=== PATIENT | female | born 1955 | race Caucasian/White ===

== ENCOUNTER 2020-05-12 15:10 | Emergency (ER) | payer OTHER ==
[2020-05-12] MEDS ORDERED: NA CHLORIDE 0.9% 500 ML ONE (15:59)
[2020-05-12] MEDS ORDERED: HYDROMORPHONE HCL 1 MG/ML INJ ONE ×2 (15:59→17:21)
--- NOTE | 2020-05-12 17:03 | RAD REPORT ---
EXAM DESCRIPTION: RAD - Pelvis - 05/12/2020 4:48 pm CLINICAL HISTORY: Pelvic pain status post injury FINDINGS: No fracture or dislocation is seen. If the patient continues to have symptoms to suggest an occult fracture then MRI would be recommended
--- NOTE | 2020-05-12 17:05 | RAD REPORT ---
EXAM DESCRIPTION: RAD - Femur Right - 05/12/2020 4:48 pm CLINICAL HISTORY: Leg pain FINDINGS: No fracture is seen involving the femur
--- NOTE | 2020-05-12 17:07 | RAD REPORT ---
EXAM DESCRIPTION: RAD - Tib Fib Right - 05/12/2020 4:47 pm CLINICAL HISTORY: Right leg pain FINDINGS: Comminuted impacted fracture involves the lateral tibial plateau which extends medially. M arked displacement of fracture fragments. No gross dislocation
--- NOTE | 2020-05-12 17:08 | RAD REPORT ---
EXAM DESCRIPTION: Miguel Single View05/12/2020 4:47 pm CLINICAL HISTORY: Chest pain COMPARISON: none FINDINGS: The lungs appear clear of acute infiltrate. The heart is normal size IMPRESSION: No acute abnormalities displayed
[2020-05-12] MEDS ORDERED: ONDANSETRON 4 MG/2 ML VIAL ONE (17:21)
--- NOTE | 2020-05-12 17:29 | EDPHYS ---
Physician Documentation [facility] Name: Cee Guthrie Age: 64 yrs Sex: Female : 1955 Arrival Date: 05/12/2020 Time: 15:20 Bed 19 Private MD: ED Physician Yared Valverde HPI: 05/12 15:30 This 64 yrs old Unknown Female presents to ER via EMS with complaints of Right Lower cp Leg Injury. 15:30 Trauma demographics: County: The injury occurred in [place] Location of Injury: The cp injury occurred at home, Date: May 12, 2020. Mechanism of injury: Fall: approximately approximately 2 feet. Associated injuries: The patient sustained right lower leg. Onset: The symptoms/episode began/occurred just prior to arrival. Patient reports fall from shed approximately 2 feet. Historical: - Allergies: 15:28 No Known Allergies; ca1 - Home Meds: 15:28 carvedilol oral oral [Active]; losartan oral oral [Active]; ca1 - PMHx: 15:28 Hypertension; ca1 - PSHx: 15:28 None; ca1 - Immunization history:: Adult Immunizations up to date, Last tetanus immunization: up to date Pneumococcal vaccine is up to date. - Social history:: Smoking status: Patient reports the use of cigarette tobacco products, smokes one-half pack cigarettes per day. ROS: 15:35 MS/extremity: Positive for injury or acute deformity, decreased range of motion, cp swelling, tenderness, of the proximal right lower leg. 15:35 Constitutional: Negative for body aches, chills, fever, poor PO intake. cp 15:35 All other systems are negative. Exam: 15:40 Constitutional: The patient appears in no acute distress, alert, awake, non-toxic, well cp developed, well nourished, in obvious pain, uncomfortable. 15:40 Head/Face: Normocephalic, atraumatic. cp 15:40 Eyes: Periorbital structures: appear normal, Conjunctiva: normal, no exudate, no injection, Lids and lashes: appear normal, bilaterally. 15:40 ENT: External ear(s): are unremarkable, Nose: is normal, Posterior pharynx: Airway: no evidence of obstruction, patent. 15:40 Neck: ROM/movement: is normal, is supple, without pain, no range of motions limitations. 15:40 Chest/axilla: Inspection: normal. 15:40 Cardiovascular: Rate: normal, Rhythm: regular. 15:40 Respiratory: the patient does not display signs of respiratory distress, Respirations: normal, no use of accessory muscles, no retractions, labored breathing, is not present, Breath sounds: are clear throughout, no decreased breath sounds. 15:40 Abdomen/GI: Inspection: abdomen appears normal, Palpation: abdomen is soft and non-tender, in all quadrants. 15:40 Back: pain, is absent, ROM is normal. 15:40 Musculoskeletal/extremity: Extremities: grossly normal except: noted in the proximal right lower leg: decreased ROM, deformity, ecchymosis, pain, swelling, tenderness, Perfusion: the extremity is normally perfused throughout, Sensation intact. 15:40 Neuro: Orientation: to person, place \T\ time. Mentation: is normal. Vital Signs: 15:24 BP 150 / 68; Pulse 88; Resp 16 S; Temp 97.9(O); Pulse Ox 98% on R/A; Weight 83.46 kg ca1 (R); Height 5 ft. 5 in. (165.10 cm) (R); Pain 10/10; 16:30 BP 123 / 74; Pulse 80; Resp 16 S; Pulse Ox 99% on R/A; ca1 17:30 BP 123 / 68; Pulse 84; Resp 16 S; Pulse Ox 98% on R/A; ca1 15:24 Body Mass Index 30.62 (83.46 kg, 165.10 cm) ca1 MDM: 15:27 Patient medically screened. cp 17:30 Data reviewed: vital signs, nurses notes, radiologic studies, plain films, and as a cp result, I will transfer patient. 05/12 15:27 Order name: XRAY Pelvis; Complete Time: 17:23 cp 05/12 17:23 Interpretation: Report reviewed. 05/12 15:27 Order name: XRAY Femur RIGHT; Complete Time: 17:23 cp 05/12 17:23 Interpretation: Report reviewed. 05/12 15:27 Order name: XRAY Tib Fib RIGHT; Complete Time: 17:23 cp 05/12 17:25 Interpretation: Report reviewed. cp 05/12 16:14 Order name: XRAY Chest (1 view); Complete Time: 17:23 cp 05/12 16:54 Order name: Knee Immobilizer; Complete Time: 17:12 cp Administered Medications: 15:45 Drug: NS 0.9% 500 ml Route: IV; Rate: bolus; Site: right antecubital; ca1 17:00 Follow up: Response: No adverse reaction; IV Status: Completed infusion; IV Intake: ca1 500ml 15:46 Drug: Dilaudid 1 mg Route: IVP; Site: right antecubital; ca1 16:30 Follow up: Response: No adverse reaction; Pain is decreased; RASS: Alert and Calm (0) ca1 16:30 Follow up: Response: No adverse reaction; Pain is decreased; RASS: Alert and Calm (0) ca1 17:09 Drug: Zofran (Ondansetron) 4 mg Route: IVP; Site: right antecubital; ca1 17:30 Follow up: Response: No adverse reaction; Nausea is decreased ca1 17:11 Drug: Dilaudid 1 mg {Note: rass 0.} Route: IVP; Site: right antecubital; ca1 18:00 Follow up: Response: No adverse reaction; Pain is decreased; RASS: Alert and Calm (0) ca1 18:03 Drug: Phenergan 12.5 mg Route: IVP; Site: right antecubital; ca1 18:11 Follow up: Response: No adverse reaction; Nausea is decreased ca1 Disposition: 17:45 Chart complete. 05/13 18:01 Co-signature as Attending Physician, Yared Valverde MD I agree with the assessment and [facility] plan of care. Disposition: 05/12/20 17:29 Transfer ordered to [facility]. Diagnosis is Fracture of upper end of tibia - right. - Reason for transfer: Higher level of care. - Accepting physician is DR Farfan. - Condition is Stable. - Problem is new. - Symptoms have improved. Signatures: Dispatcher [employer] Yared Henson MD MD cha Page, Corey, PA PA cp Acob, Cheryl RN RN ca1 Corrections: (The following items were deleted from the chart) 05/12 17:32 17:29 05/12/2020 17:29 Transfer ordered to [facility]. Diagnosis is cp Fracture of upper end of tibia - right. Reason for transfer: Higher level of care. Accepting physician is Doctor. Condition is Stable. Problem is new. Symptoms have improved. cp 18:18 17:32 05/12/2020 17:29 Transfer ordered to [facility]. Diagnosis is ca1 Fracture of upper end of tibia - right. Reason for transfer: Higher level of care. Accepting physician is DR Farfan. Condition is Stable. Problem is new. Symptoms have improved. cp
--- NOTE | 2020-05-12 17:29 | ER ---
Nurse's Notes [facility] Name: Cee Guthrie Age: 64 yrs Sex: Female : 1955 Arrival Date: 05/12/2020 Time: 15:20 Bed 19 Private MD: Diagnosis: Fracture of upper end of tibia-right Presentation: 05/12 15:24 Chief complaint: Chief complaint: Patient's son or daughter states: Missed a step, ca1 tripped and fell 2.5 feet down, landed on R knee with obvious deformity. Denies LOC. Denies hitting head. Hip stable, denies pain. IV 20G RAC, Zofran 4mg IV, Tylenol 1gm IV, Fentanyl 100 mcg IV given. Coronavirus screen: Client denies travel out of the [place] in the last 14 days. At this time, the client does not indicate any symptoms associated with coronavirus-19. Ebola Screen: Patient negative for fever greater than or equal to 101.5 degrees Fahrenheit, and additional compatible Ebola Virus Disease symptoms Patient denies exposure to infectious person. Patient denies travel to an Ebola-affected area in the 21 days before illness onset. No symptoms or risks identified at this time. Initial Sepsis Screen: Does the patient meet any 2 criteria? No. Patient's initial sepsis screen is negative. Does the patient have a suspected source of infection? No. Patient's initial sepsis screen is negative. Risk Assessment: Do you want to hurt yourself or someone else? Patient reports no desire to harm self or others. Onset of symptoms was May 12, 2020. 15:24 Method Of Arrival: EMS: [facility] ca1 15:24 Acuity: RADHA 3 ca1 Triage Assessment: 15:28 General: Appears in no apparent distress. uncomfortable, Behavior is calm, cooperative, ca1 appropriate for age. Pain: Complains of pain in right knee Pain does not radiate. Pain currently is 10 out of 10 on a pain scale. EENT: No signs and/or symptoms were reported regarding the EENT system. Neuro: Level of Consciousness is awake, alert, obeys commands, Oriented to person, place, time, situation. Derm: Skin is intact, is healthy with good turgor, Skin is pink, warm \T\ dry. Musculoskeletal: Circulation, motion, and sensation intact. Capillary refill < 3 seconds, Range of motion: limited in right knee Bony deformity noted of right knee. Historical: - Allergies: 15:28 No Known Allergies; ca1 - Home Meds: 15:28 carvedilol oral oral [Active]; losartan oral oral [Active]; ca1 - PMHx: 15:28 Hypertension; ca1 - PSHx: 15:28 None; ca1 - Immunization history:: Adult Immunizations up to date, Last tetanus immunization: up to date Pneumococcal vaccine is up to date. - Social history:: Smoking status: Patient reports the use of cigarette tobacco products, smokes one-half pack cigarettes per day. Screenin:29 Abuse screen: Denies threats or abuse. Denies injuries from another. Nutritional ca1 screening: No deficits noted. Tuberculosis screening: No symptoms or risk factors identified. Fall Risk Fall in past 12 months (25 points). IV access (20 points). Total Lewis Fall Scale indicates Low Risk Score (25-44 pts). Fall prevention measures have been instituted. Side Rails Up X 2 As available Patient and Family Educated on Fall Prevention Program and strategies. Assessment: 15:29 Reassessment: see triage notes. ca1 16:30 Reassessment: Patient appears in no apparent distress at this time. Patient and/or ca1 family updated on plan of care and expected duration. Pain level reassessed. Patient is alert, oriented x 3, equal unlabored respirations, skin warm/dry/pink. 17:30 Reassessment: Patient appears in no apparent distress at this time. Patient and/or ca1 family updated on plan of care and expected duration. Pain level reassessed. Patient is alert, oriented x 3, equal unlabored respirations, skin warm/dry/pink. 18:03 Reassessment: Called report to ALONZO Loving. ca1 18:17 Reassessment: Patient appears in no apparent distress at this time. Patient is alert, ca1 oriented x 3, equal unlabored respirations, skin warm/dry/pink. Vital Signs: 15:24 BP 150 / 68; Pulse 88; Resp 16 S; Temp 97.9(O); Pulse Ox 98% on R/A; Weight 83.46 kg ca1 (R); Height 5 ft. 5 in. (165.10 cm) (R); Pain 10/10; 16:30 BP 123 / 74; Pulse 80; Resp 16 S; Pulse Ox 99% on R/A; ca1 17:30 BP 123 / 68; Pulse 84; Resp 16 S; Pulse Ox 98% on R/A; ca1 15:24 Body Mass Index 30.62 (83.46 kg, 165.10 cm) ca1 ED Course: 15:20 Patient arrived in ED. ca1 15:23 Pankaj Mcmahon NP is PHCP. pm1 15:23 Yared Valverde MD is Attending Physician. pm1 15:23 Yared Morillo PA is PHCP. cp 15:25 Triage completed. ca1 15:28 Arm band placed on right wrist. ca1 15:29 Patient has correct armband on for positive identification. Bed in low position. Call ca1 light in reach. Side rails up X2. Pulse ox on. NIBP on. Warm blanket given. 15:29 Maintain EMS IV. Dressing intact. Good blood return noted. Site clean \T\ dry. Gauge \T\ ca 1 site: 20G RAC. 15:32 Nurys Jaime, RN is Primary Nurse. ca1 16:47 XRAY Pelvis In Process Unspecified. EDMS 16:47 XRAY Femur RIGHT In Process Unspecified. EDMS 16:47 XRAY Tib Fib RIGHT In Process Unspecified. EDMS 16:47 XRAY Chest (1 view) In Process Unspecified. EDMS 17:17 Knee immobilizer applied on right knee. ca1 17:51 No provider procedures requiring assistance completed. Patient transferred, IV remains ca1 in place. Administered Medications: 15:45 Drug: NS 0.9% 500 ml Route: IV; Rate: bolus; Site: right antecubital; ca1 17:00 Follow up: Response: No adverse reaction; IV Status: Completed infusion; IV Intake: ca1 500ml 15:46 Drug: Dilaudid 1 mg Route: IVP; Site: right antecubital; ca1 16:30 Follow up: Response: No adverse reaction; Pain is decreased; RASS: Alert and Calm (0) ca1 16:30 Follow up: Response: No adverse reaction; Pain is decreased; RASS: Alert and Calm (0) ca1 17:09 Drug: Zofran (Ondansetron) 4 mg Route: IVP; Site: right antecubital; ca1 17:30 Follow up: Response: No adverse reaction; Nausea is decreased ca1 17:11 Drug: Dilaudid 1 mg {Note: rass 0.} Route: IVP; Site: right antecubital; ca1 18:00 Follow up: Response: No adverse reaction; Pain is decreased; RASS: Alert and Calm (0) ca1 18:03 Drug: Phenergan 12.5 mg Route: IVP; Site: right antecubital; ca1 18:11 Follow up: Response: No adverse reaction; Nausea is decreased ca1 Intake: 17:00 IV: 500ml; Total: 500ml. ca1 Outcome: 17:29 ER care complete, transfer ordered by . cp 18:17 Transferred by ground EMS to [facility], Transfer form completed. X-rays sent ca1 w/ patient. 18:17 Condition: stable 18:17 Instructed on the need for transfer. 18:18 Patient left the ED. ca1 Signatures: Dispatcher [employer] EDMS Yared Morillo PA PA cp Marinas, Patrick, [employer]AL MEAT P[employer]ER HALAL MEAT PACKER pm1 Nurys Jaime, RN RN ca1 Corrections: (The following items were deleted from the chart) 15:27 15:24 Chief complaint: ca1 ca1 20:22 20:22 Response: No adverse reaction; Nausea is decreased ca1 ca1
[2020-05-12] MEDS ORDERED: PROMETHAZINE INJ 25 MG/ML AMP ONE (18:14)
[2020-05-16 17:58] VITALS: TEMP 97.9
[2020-05-16 18:00] VITALS: BP 123/68; O2SAT 98
== END 2020-05-12 18:18 | disposition short-term general hospital (02) ==
LOC: ER 15:10
PROC: 2W3LX1Z Immobilization of Right Lower Extremity using Splint (ICD-10-PCS; principal; 2020-05-12)
DX: S82.141A Displaced bicondylar fracture of right tibia, initial encounter for closed fracture (principal); W13.8XXA Fall from, out of or through other building or structure, initial encounter; Y93.9 Activity, unspecified; Y92.009 Unspecified place in unspecified non-institutional (private) residence as the place of occurrence of the external cause; I10 Essential (primary) hypertension; F17.210 Nicotine dependence, cigarettes, uncomplicated
CPT/HCPCS: 96361; 71045; 72170; 73552; 73590; 96375; 96374; 99285; 29505; J2550; J1170 ×2; J7040; J2405

== ENCOUNTER 2020-05-25 17:10 | Emergency (ER) | payer OTHER ==
--- OUTSIDE RECORDS SUMMARY | 2020-05-25 17:13 | XMS REPORT | Summary of Care ---
:1955 Author Organization [facility] Address [address] [place] [id number] Care Team Providers Name Role Phone Waqar Zendejas MD Primary Care Provider Geovanna Miller MD Unavailable Shonda Flores Unavailable Encounter Details Date Type Department Care Team Description 03/02/2020 Imm/Inj Visit [facility] Family Blas Zendejas MD [address] [place] [address] [place] [address] Need for prophylactic Medicine - [place] Nurse, [facility] Fam Pob I vaccination and [address] [place] [address] [place] [address] Allergies Active Allergy Reactions Severity Noted Date Comments Lisinopril Cough 09/22/2019 documented as of this encounter (statuses as of 03/02/2020) Medications Medication Sig Dispensed Refills Start Date End Date Status losartan 25 mg Take 1 tablet by 90 tablet 3 09/22/2019 Active tabletIndications: mouth daily. Family history of premature CAD, Essential hypertension, Metabolic syndrome, Palpitations carvediloL (COREG) 6.25 Take 6.25 mg by 0 Active mg tablet mouth 2 (two) times daily with meals. documented as of this encounter (statuses as of 03/02/2020) Active Problems Problem Noted Date Pelviectasis, renal 11/22/2019 Fatty liver 11/22/2019 Erythrocytosis 11/11/2019 Abnormal liver function tests 11/11/2019 Dyslipidemia 11/11/2019 Vitamin D deficiency 11/11/2019 Osteopenia 03/04/2019 Essential hypertension 02/11/2019 Type 2 diabetes mellitus without complications 019 Tobacco use 02/11/2019 documented as of this encounter (statuses as of 03/02/2020) Immunizations Name Administration Dates Next Due Influenza High Dose 02/25/2019 Influenza Virus Vaccine Quad .5 mL IM 6+ MO 03/02/2020 Pneumococcal 13 Conjugate, PCV13 (Prevnar 13) 02/25/2019 documented as of this encounter Social History Tobacco Use Types Packs/Day Years Used Date Current Every Day Smoker Cigarettes 0.5 30 Smokeless Tobacco: Never Used Alcohol Use Drinks/Week oz/Week Comments Not Currently Alcohol Habits Answer Date Recorded How often do you have a drink containing alcohol? Never 02/11/2019 How many drinks containing alcohol do you have on a typical Not asked day when you are drinking? How often do you have six or more drinks on one occasion? No t asked Sex Assigned at Date Recorded Not on file documented as of this encounter Last Filed Vital Signs Not on filedocumented in this encounter Plan of Treatment Date Type Specialty Care Team Description 03/30/2020 Office Visit Cardiology Tequila Miller MD [address] [place] [phone] 05/11/2020 Office Visit Family Medicine Michela Zenedjas MD [address] [facility] [address] [place] [phone] Health Maintenance Due Date Last Done Comments COLON CANCER SCREENING ANNUAL 12/01/2003 FIT/FOBT COLON CANCER SCREENING FIT 12/01/2003 DNA EVERY 3 YEARS COLON CANCER SCREENING 12/01/2003 SIGMOIDOSCOPY EVERY 5 YEARS COLONOSCOPY 12/01/2003 Colorectal Cancer Screening 12/01/2003 INFLUENZA VACCINE (#1) 2020 02/25/2019 Medicare Wellness Visit 02/26/2020 02/25/2019 PNEUMOCOCCAL VACCINES 65+ (2 02/26/2020 02/25/2019 of 2 - PPSV23) Breast Cancer Screening 03/04/2020 03/04/2019 (MAMMOGRAM) LUNG CANCER SCREEN: 03/04/2020 03/04/2019 Recommended for age 55-80 with 30 + pack year history EYE EXAM 05/11/2020 Postponed from 0 12/01/1963 (Current Contraindication ) HgA1C 05/11/2020 11/10/2019, 05/12/2019, 01/24/2019 DTaP,Tdap,and Td Vaccines (1 05/12/2020 Pos tponed from 1972 - Tdap) (Insurance / Fin ancial) Zoster Recombinant Vaccine 05/12/2020 Postp oned from 12/01/2003 (SHINGRIX) (1 of 2) (Insurance / Financial) CREATININE (SERUM) 11/09/2020 11/10/2019, 05/12/2019, 01/24/2019 Depression Screening 11/09/2020 11/10/2019 FOOT EXAM 11/09/2020 11/10/2019, 11/10/2019, 02/11/2019 LDL-C 11/09/2020 11/10/2019, 05/12/2019, 01/24/2019 URINE MICROALBUMIN 11/09/2020 11/10/2019, 02/25/2019 Osteoporosis Screening 03/04/2029 03/04/2019 HEPATITIS C (HCV) SCREEN Completed 02/25/2019 documented as of this encounter Procedures Procedure Name Priority Date/Time Associated Diagnosis Comme nts FLU VACC ([id number]), Routine 03/02/2020 1:43 PM Need for pro phylactic 6+ MONTHS, IM, QUAD CDT vaccination and inoculation against influenza documented in this encounter Results Not on filedocumented in this encounter Visit Diagnoses Diagnosis Need for prophylactic vaccination and in oculation against influenza documented in this encounter Insurance Payer Benefit Plan / Subscriber ID Effective Phone Address T ype Group Dates MEDICARE MEDICARE PART [id number] 2018-Prese [phone] Medicare A & B nt [id number] [place] [phone] [facility] [id number] 2018-Prese I ndemnity [employer] nt documented as of this encounter
--- OUTSIDE RECORDS SUMMARY | 2020-05-25 17:14 | XMS REPORT | Summary of Care ---
:1955 Author Organization [facility] Address [address] [place] [address] Care Team Providers Name Role Phone Waqar Zendejas MD Primary Care Provider Geovanna Miller MD Unavailable Shonda Flores Unavailable Reason for Referral Radiology Services (Routine) Status Reason Specialty Diagnoses / Referred By Referred To Procedures Contact Contact Closed Diagnostic Diagnoses Encounter for screening mammogram for malignant neoplasm of breast Waqar Zendejas Radiology Procedures BI SCREENING MAMMOGRAM BILATERAL MD Evita [address] [place] [address] [place] [address] Reason for Visit Radiology Services (Routine) Status Reason Specialty Diagnoses / Referred By Referred To Procedures Contact Contact Closed Diagnostic Diagnoses Encounter for screening mammogram for malignant neoplasm of breast Waqar Zendejas Radiology Procedures BI SCREENING MAMMOGRAM BILATERAL MD Evita [address] [place] [address] Encounter Details Date Type Department Care Team Description 03/28/2020 Hospital Encounter [facility] Andrey Zendejas Arrived [place] [facility] Sofía sewell MD [address] [place] [address] Dr devlin [address] [place] [address] [place] [address] [place] [address] [phone] [address] Allergies Active Allergy Reactions Severity Noted Date Comments Lisinopril Cough 09/22/2019 documented as of this encounter (statuses as of 03/29/2020) Medications Medication Sig Dispensed Refills Start Date End Date Status losartan 25 mg Take 1 tablet by 90 tablet 3 09/22/2019 Active tabletIndications: mouth daily. Family history of premature CAD, Essential hypertension, Metabolic syndrome, Palpitations carvediloL (COREG) 6.25 Take 6.25 mg by 0 Active mg tablet mouth 2 (two) times daily with meals. documented as of this encounter (statuses as of 03/29/2020) Active Problems Problem Noted Date Pelviectasis, renal 11/22/2019 Fatty liver 11/22/2019 Erythrocytosis 11/11/2019 Abnormal liver function tests 11/11/2019 Dyslipidemia 11/11/2019 Vitamin D deficiency 11/11/2019 Osteopenia 03/04/2019 Essential hypertension 02/11/2019 Type 2 diabetes mellitus without complications 019 Tobacco use 02/11/2019 documented as of this encounter (statuses as of 03/29/2020) Immunizations Name Administration Dates Next Due Influenza High Dose 02/25/2019 Influenza Virus Vaccine Quad .5 mL IM 6+ MO 03/02/2020 Pneumococcal 13 Conjugate, PCV13 (Prevnar 13) 02/25/2019 Pneumococcal Polysaccharide, PPSV23 (PNEUMOVAX) 03/02/2020 documented as of this encounter Social History [...] Assigned at Date Recorded Not on file COVID-19 Exposure Response Date Recorded In the last month, have you been in contact with No / Unsure 03/28/2020 9:08 AM CDT someone who was confirmed or suspected to have Coronavirus / COVID-19? documented as of this encounter Last Filed Vital Signs Not on filedocumented in this encounter Plan of Treatment Date Type Specialty Care Team Description 03/30/2020 Office Visit Cardiology Tequila Miller MD [address] [place] [address] [phone] 05/11/2020 Office Visit Family Medicine Michela Zendejas MD [address] [place] [address] [phone] Health Maintenance Due Date Last Done Comments COLON CANCER SCREENING ANNUAL 12/01/2003 FIT/FOBT COLON CANCER SCREENING FIT 12/01/2003 DNA EVERY 3 YEARS COLON CANCER SCREENING 12/01/2003 SIGMOIDOSCOPY EVERY 5 YEARS COLONOSCOPY 12/01/2003 Colorectal Cancer Screening 12/01/2003 Medicare Wellness Visit 02/26/2020 02/25/2019 Breast Cancer Screening 03/04/2020 03/04/2019 (MAMMOGRAM) LUNG [...] 03/04/2019 HEPATITIS C (HCV) SCREEN Completed 02/25/2019 INFLUENZA VACCINE Completed 03/02/2020, 02/25/2019 PNEUMOCOCCAL VACCINES 65+ Completed 03/02/2020, 02/25/2019 documented as of this encounter Procedures Procedure Name Priority Date/Time Associated Diagnosis Comme nts BI SCREENING Routine 03/28/2020 9:43 AM Encounter for Results for this MAMMOGRAM BILATERAL CDT screening mammogram p rocedure are in for malignant the results neoplasm of breast section. documented in this encounter Results BI SCREENING MAMMOGRAM BILATERAL (03/28/2020 9:43 AM CDT) Specimen Narrative Performed At This result has an attachment that is no t available. Examination: PACS BI SCREENING MAMMOGRAM BILATERAL History: Patient is 64 year old and is seen for: Screening ma mmogram. Computer-aided detection (CAD) utilized. Comparisons: 03/15/2019 BI DIAGNOSTIC TOMOSYNTHESIS LE FT and 03/04/2019 BI SCREENING MAMMOGRAM BILATERAL Findings: The breasts are almost entirely fatty. Left There is a 4 mm equal density, oval mass with circumsc ribed margins seen in the lower outer quadrant of the left breast in the middle depth, 6.6 cm from the nipple. Compared to the previous study, there are no significant changes. There is no evidence of suspicious masses, calcificati ons, or other abnormal findings in the left breast. Right There is no evidence of suspicious masses, calcificati ons, or other abnormal findings in the right breast. Impression: No signs of malignancy. Recommendation: Annual mammographic follow-up - Left Annual mammographic follow-up - Right BI-RADS Category: Both 2 - Benign Performing Organization Address City/State/Zipcode Phone Number PACS documented in this encounter Visit Diagnoses Diagnosis Encounter for screening mammogram for ma lignant neoplasm of breast Other screening mammogram documented in this encounter Insurance Payer Benefit Plan / Subscriber ID Effective Phone Address T ype Group Dates MEDICARE MEDICARE PART [id number] 2018-Prese [phone] Medicare A & B nt [phone] [id number] [place] [phone] [facility] [id number] 2018-Prese I ndemnity [employer] nt documented as of this encounter
--- OUTSIDE RECORDS SUMMARY | 2020-05-25 17:14 | XMS REPORT | Summary of Care ---
:1955 Author Organization [facility] Address [address] [place] [address] Care Team Providers Name Role Phone Waqar Zendejas MD Primary Care Provider Geovanna Miller MD Unavailable Shonda Flores Unavailable Reason for Referral Radiology Services (Routine) Status Reason Specialty Diagnoses / Referred By Referred To Procedures Contact Contact New Request Diagnostic Diagnoses Encounter for screening mammogram for malignant neoplasm of breast Cristiana, Radiology Procedures BI SCREENING MAMMOGRAM BILATERAL Waqar Jama MD [address] [place] [address] [place] [address] Reason for Visit Reason Comments Orders Annual mammogram Encounter Details Date Type Department Care Team Description 03/06/2020 Telephone [facility] Family Waqar Zendejas O rders (Annual Medicine - Christine GOTTI mammogram) [address] [place] [address] [place] [phone] Allergies Active Allergy Reactions Severity Noted Date Comments Lisinopril Cough 09/22/2019 documented as of this encounter (statuses as of 03/06/2020) Medications Medication Sig Dispensed Refills Start Date End Date Status losartan 25 mg Take 1 tablet by 90 tablet 3 09/22/2019 Active tabletIndications: mouth daily. Family history of premature CAD, Essential hypertension, Metabolic syndrome, Palpitations carvediloL (COREG) 6.25 Take 6.25 mg by 0 Active mg tablet mouth 2 (two) times daily with meals. documented as of this encounter (statuses as of 03/06/2020) Active Problems Problem Noted Date Pelviectasis, renal 11/22/2019 Fatty liver 11/22/2019 Erythrocytosis 11/11/2019 Abnormal liver function tests 11/11/2019 Dyslipidemia 11/11/2019 Vitamin D deficiency 11/11/2019 Osteopenia 03/04/2019 Essential hypertension 02/11/2019 Type 2 diabetes mellitus without complications 019 Tobacco use 02/11/2019 documented as of this encounter (statuses as of 03/06/2020) Immunizations Name Administration Dates Next Due Influenza [...] Signs Not on filedocumented in this encounter Miscellaneous Notes Telephone Encounter - Waqar Zendejas MD - 03/06/2020 6:10 PM CDTOrder entered. elephone Encounter - Lluvia Casas - 03/06/2020 3:53 PM CDTPlease review elephone Encounter - Jaqueline Mina - 03/06/2020 3:00 PM CDTRequesting orders for patient 12-month follow-up on her BILATERAL breast. Please place order for: SCREENING MAMMOGRAM-BILATERAL If patient is planning on returning to [facility] please place order for mammogram. Once orders are placed, we will call and schedule patient Thank you documented in this encounter Plan of Treatment Date Type Specialty Care Team Description 03/30/2020 Office Visit Cardiology Tequila Miller MD [address] [place], [place] [phone] 05/11/2020 Office Visit Family Medicine Michela Zendejas MD [address] [place] [phone] Name Type Priority Associated Diagnoses Order S chedule BI SCREENING MAMMOGRAM IMAGING Routine Encounter for scre ening Expected: 03/06/2020, BILATERAL mammogram for malignant Expi res: 05/06/2021 neoplasm of breast Health Maintenance Due Date Last Done Comments [...] 03/02/2020, 02/25/2019 documented as of this encounter Results Not on filedocumented in this encounter Visit Diagnoses Diagnosis Encounter for screening mammogram for ma lignant neoplasm of breast - Primary Other screening mammogram documented in this encounter Insurance Payer Benefit Plan / Subscriber ID Effective Phone Address T ype Group Dates MEDICARE MEDICARE PART [id number] 2018-Prese [phone] Medicare A & B nt [phone] [id number] [place] [phone] [facility] [id number] 2018-Prese I ndemnity [employer] nt documented as of this encounter
--- OUTSIDE RECORDS SUMMARY | 2020-05-25 17:14 | XMS REPORT | Summary of Care ---
:1955 Author Organization [facility] Address [address] [place] [address] Care Team Providers Name Role Phone Waqar Zendejas MD Primary Care Provider Geovanna Miller MD Unavailable Shonda Flores Unavailable Encounter Details Date Type Department Care Team Description 03/28/2020 Orders Only [facility] Doctor Unassigned, No [address] [facility] [place] [address] [address] [place] [address] Allergies Active Allergy Reactions Severity Noted Date Comments Lisinopril Cough 09/22/2019 documented as of this encounter (statuses as of 03/28/2020) Medications Medication Sig Dispensed Refills Start Date End Date Status losartan 25 mg Take 1 tablet by 90 tablet 3 09/22/2019 Active tabletIndications: mouth daily. Family history of premature CAD, Essential hypertension, Metabolic syndrome, Palpitations carvediloL (COREG) 6.25 Take 6.25 mg by 0 Active mg tablet mouth 2 (two) times daily with meals. documented as of this encounter (statuses as of 03/28/2020) Active Problems Problem Noted Date Pelviectasis, renal 11/22/2019 Fatty liver 11/22/2019 Erythrocytosis 11/11/2019 Abnormal liver function tests 11/11/2019 Dyslipidemia 11/11/2019 Vitamin D deficiency 11/11/2019 Osteopenia 03/04/2019 Essential hypertension 02/11/2019 Type 2 diabetes mellitus without complications 019 Tobacco use 02/11/2019 documented as of this encounter (statuses as of 03/28/2020) Immunizations Name Administration Dates Next Due Influenza [...] Treatment Date Type Specialty Care Team Description 03/28/2020 Appointment Radiology Michela Zendejas MD [address] [place] [phone] 03/30/2020 Office Visit Cardiology Tequila Miller MD [address] [place] [phone] 05/11/2020 Office Visit Family Medicine Michela Zendejas MD [address] [place] [address] [phone] Health Maintenance Due Date Last Done [...] Name Priority Date/Time Associated Diagnosis Comme nts ASSIGNMENT OF BENEFITS Routine 03/28/2020 9:01 AM CDT documented in this encounter Results Not on filedocumented in this encounter Insurance Payer Benefit Plan / Subscriber ID Effective Phone Address T ype Group Dates MEDICARE MEDICARE PART [id number] 2018-Prese [phone] Medicare A & B nt [id number] [place] [phone] [facility] [id number] 2018-Prese I ndemnity [employer] nt documented as of this encounter
--- OUTSIDE RECORDS SUMMARY | 2020-05-25 17:14 | XMS REPORT | Summary of Care ---
:1955 Author Organization [facility] [[email or web address]] [email or web address] Address [address] [place] [id number] Care Team Providers Name Role Phone Waqar Zendejas MD Primary Care Provider Geovanna Miller MD Unavailable Shonda Flores Unavailable Reason for Visit Reason Comments Follow-up 6mo Ekg Done today in Office Encounter Details Date Type Department Care Team Description 03/30/2020 Office Visit [facility] Tequila Miller Essential hyp ertension (Primary Dx); Cardiology- Christine Austin MD Family history of premature CAD; [address] [place] [address] [facility] Metabolic sean; [address], [address] Palpitations; [place], [place] Dyslipidemia; [id number] Dyslipidemia, goal LDL below 70 [phone] Allergies Active Allergy Reactions Severity Noted Date Comments Lisinopril Cough 09/22/2019 documented as of this encounter (statuses as of 03/30/2020) Medications Medication Sig Dispensed Refills Start Date End Date Status carvediloL (COREG) Take 1 180 tablet 3 03/30/2020 Active 6.25 mg tablet by 1 tabletIndications: mouth 2 Family history of (two) times premature CAD, daily with Essential meals for 90 hypertension, days. Metabolic syndrome, Palpitations losartan 25 mg Take 1 90 tablet 3 03/30/2020 Acti ve tabletIndications: tablet by Family history of mouth daily. premature CAD, Essential hypertension, Metabolic syndrome, Palpitations losartan 25 mg Take 1 90 tablet 3 09/22/2019 Disc ontinued tabletIndications: tablet by 0 ( Reorder) Family history of mouth daily. premature CAD, Essential hypertension, Metabolic syndrome, Palpitations carvediloL (COREG) Take 6.25 mg 0 03/30/20 2 Discontinued 6.25 mg tablet by mouth 2 0 (Reo rder) (two) times daily with meals. documented as of this encounter (statuses as of 03/30/2020) Active Problems Problem Noted Date Pelviectasis, renal 11/22/2019 Fatty liver 11/22/2019 Erythrocytosis 11/11/2019 Abnormal liver function tests 11/11/2019 Dyslipidemia 11/11/2019 Vitamin D deficiency 11/11/2019 Osteopenia 03/04/2019 Essential hypertension 02/11/2019 Type 2 diabetes mellitus without complications 019 Tobacco use 02/11/2019 documented as of this encounter (statuses as of 03/30/2020) Immunizations Name Administration Dates Next Due Influenza [...] been in contact with No / Unsure 03/30/2020 9:48 AM CDT someone who was confirmed or suspected to have Coronavirus / COVID-19? documented as of this encounter Last Filed Vital Signs Vital Sign Reading Time Taken Comments Blood Pressure 120/76 03/30/2020 10:46 AM CDT Pulse 77 03/30/2020 10:46 AM CDT Temperature - - Respiratory Rate 19 03/30/2020 10:46 AM CDT Oxygen Saturation 99% 03/30/2020 10:46 AM CDT Inhaled Oxygen Concentration - - Weight 83.9 kg (184 lb 14.4 oz) 03/30/2020 10:46 AM CDT Height 165.1 cm (5' 5") 03/30/2020 10:46 AM CDT Body Mass Index 30.77 03/30/2020 10:46 AM CDT documented in this encounter Progress Notes Tequila Miller MD - 03/30/2020 10:30 AM CDT [facility] Cardiology Consult Note Patient: Cee Guthrie Date of : 1955 Primary Care Physician: Waqar Zendejas CHIEF COMPLAINT: Chief Complaint Patient presents with Follow-up 6mo Ekg Done today in Office HISTORY OF PRESENT ILLNESS: Cee Guthrie is a 64 year old female presents to the clinic for follow up for palpitations/HTN. History from patient herself. Since last OV, feeling well. No more palpitations noted. Rarely noticeable. No MARKS. No chest pain noted. No history of exertional chest pain or exertional shortness of breath noted. No chest pain at rest. No PND or orthopnea. No pedal edema. No syncopal attacks. Smoking + Family history of dad: CAD < 60 yrs leading to CABG. No significant surgical history noted from cardiac stand point. PAST MEDICAL HISTORY HTN Previous Cardiac Studies: IMAGING - I personally reviewed, pertinent results as below: ECG 01/24/2019 SR with narrow QRS complex. No sig ST T changes ECG 03/30/2020 SR with narrow QRS complex. No sig ST changes. Echo 01/2019 Interpretation Summary A complete two-dimensional transthoracic echocardiogram was performed (2D, M- mode, Doppler and colorflow Doppler). There is no comparison study available. Left ventricular systolic function is normal. Diastolic function is impaired relaxation. The right ventricle is normal in size and function. Right ventricular systolic pressure is 15-20 mmHg. SOCIAL HISTORY Social History Socioeconomic History Marital status: Spouse name: Not on file Number of children: Not on file Years of education: Not on file Highest education level: Not on file Occupational History Not on file Social Needs Financial resource strain: Not on file Food insecurity Worry: Not on file Inability: Not on file Transportation needs Medical: Not on file Non-medical: Not on file Tobacco Use Smoking status: Current Every Day Smoker Packs/day: 0.50 Years: 30.00 Pack years: 15.00 Types: Cigarettes Smokeless tobacco: Never Used Substance and Sexual Activity Alcohol use: Not Currently Frequency: Never Drug use: Not on file Sexual activity: Not on file Lifestyle Physical activity Days per week: Not on file Minutes per session: Not on file Stress: Not on file Relationships Social connections Talks on phone: Not on file Gets together: Not on file Attends denominational service: Not on file Active member of club or organization: Not on file Attends meetings of clubs or organizations: Not on file Relationship status: Not on file Intimate partner violence Fear of current or ex partner: Not on file Emotionally abused: Not on file Physically abused: Not on file Forced sexual activity: Not on file Other Topics Concern Not on file Social History Narrative . 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 Lives in [place]. ALLERGIES Allergies Allergen Reactions Lisinopril Cough MEDICATIONS Patient's Medications START taking these medications No medications on file CONTINUE taking these medications which have NOT CHANGED No medications on file START taking Modified Medications as Prescribed Modified Medication Previous Medication CARVEDILOL (COREG) 6.25 MG TABLET carvediloL (COREG) 6.25 mg tablet Take 1 tablet by mouth 2 (two) times daily with meals for 90 days. Take 6.25 mg by mouth 2 (two) times daily with meals. LOSARTAN 25 MG TABLET losartan 25 mg tablet Take 1 tablet by mouth daily. Take 1 tablet by mouth daily. STOP taking these medications No medications on file REVIEW OF SYSTEMS: Comprehensive 10-system review was conducted and were negative except for what's noted in the HPI. The following systems were reviewed: Constitutional, cardiovascular, respiratory, gastrointestinal, genitourinary, musculoskeletal, neurologic, psychiatric, endocrinological, and hematological. PHYSICAL EXAMINATION: Vitals: 03/30/20 1046 BP: 120/76 BP Location: Left arm Patient Position: Sitting BP CUFF SIZE: Adult Large Pulse: 77 Resp: 19 SpO2: 99% Weight: 184 lb 14.4 oz (83.9 kg) Height: 5' 5" (1.651 m) General: no apparent distress HEENT: normocephalic atraumatic Neck: supple, no lymphadenopathy, no bruits, no JVD Lungs: clear to auscultation bilaterally. No wheezes or rhonchi. No increased work of breathing. Cardio: Regular rate and rhythm, S1&S2 normal, no murmurs, rubs or gallops Abdomen: soft; non-tender; non-distended; normoactive bowel sounds. : not examined Rectal: not examined Extremities: no clubbing, cyanosis, or edema. Skin: no rashes, no visible lesions. Neuro: no gross focal deficits LABS - Reviewed pertinent labs as below: CBC BMP PT/INR WBC (10*3/L) Date Value 11/10/2019 9.42 NA (mmol/L) Date Value 11/10/2019 138 No results found for: PT PLT (10*3/L) Date Value 11/10/2019 260 K (mmol/L) Date Value 11/10/2019 4.7 No results found for: PTINR HGB (g/dL) Date Value 11/10/2019 16.8 (H) BUN (mg/dL) Date Value 11/10/2019 15 HCT (%) Date Value 11/10/2019 49.6 (H) CREATININE (mg/dL) Date Value 11/10/2019 0.66 LIPID PROFILE GLUCOSE (mg/dL) Date Value 11/10/2019 97 CHOL (mg/dL) Date Value 11/10/2019 162 TSH LDL CHOL (mg/dL) Date Value 11/10/2019 103 TSH (mIU/L) Date Value 11/10/2019 1.32 CARDIAC ENZYMES HDL (mg/dL) Date Value 11/10/2019 31 (L) No results found for: CK TRIG (mg/dL) Date Value 11/10/2019 141 LFTs No results found for: CKMB AST(SGOT) (U/L) Date Value 11/10/2019 41 (H) No results found for: TROPNI ALT(SGPT) (U/L) Date Value 01/24/2019 68 (H) ALTv (U/L) Date Value 11/10/2019 48 (H) No results found for: BNP LDL CHOL (mg/dL) Date Value 11/10/2019 103 There are no current results on file for these tests and/or test for 1 year. Recent Labs 11/10/19 1214 TRIG 141 LDL CHOL (mg/dL) Date Value 11/10/2019 103 No results found for: NTBNP ASSESSMENT/PLAN 1. Essential hypertension EKG-12 LEAD ROUTINE carvediloL (COREG) 6.25 mg tablet losartan 25 mg tablet 2. Family history of premature CAD EKG-12 LEAD ROUTINE carvediloL (COREG) 6.25 mg tablet losartan 25 mg tablet 3. Metabolic syndrome EKG-12 LEAD ROUTINE carvediloL (COREG) 6.25 mg tablet losartan 25 mg tablet 4. Palpitations EKG-12 LEAD ROUTINE carvediloL (COREG) 6.25 mg tablet losartan 25 mg tablet 5. Dyslipidemia 6. Dyslipidemia, goal LDL below 70 Clinically stable from cardiac stand point. No new cardiac complaint noted. HTN: Well controlled on Coreg 6.25 mg BiD and Losartan 25 mg daily. Reports BP at home < 130/80. Home BP log recommended. Cross check his BP machine. Appropriate ways to check home BP discussed. Goals BP < 130/80 stressed. Explained if BP > 130/80, adviced to send us the log. Lifestyle modifications stressed. Palpitations: Rarely noticeable. Recommend to maintain palpitations journal. If constant or increasing, then will need Holter and stress test. She is currently weaning apple watch. So far no atrial fibrillation detected. Metabolic syndrome: stressed lifestyle modifications. Recommend smoking cessation. Family history of premature CAD: LDL worsening Continue working on lifestyle modifications. Goal LDL<< 70. Rpt lipids in 05/2020 along with PCP labs. If LDL elevated, then will need to start Stains. Dyslipidemia: Recommended to keep LDL < 70. Lifestyle modifications stressed. As above. LDL CHOL (mg/dL) Date Value 11/10/2019 103 The 10-year ASCVD risk score ([place] AZEEM Jr., et al., 2013) is: 25.9% Values used to calculate the score: Age: 64 years Sex: Female Is Non- : No Diabetic: Yes Tobacco smoker: Yes Systolic Blood Pressure: 120 mmHg Is BP treated: Yes HDL Cholesterol: 31 mg/dL Total Cholesterol: 162 mg/dL Follow up in 12 months. No orders of the defined types were placed in this encounter. Requested Prescriptions Signed Prescriptions Disp Refills carvediloL (COREG) 6.25 mg tablet 180 tablet 3 Sig: Take 1 tablet by mouth 2 (two) times daily with meals for 90 days. losartan 25 mg tablet 90 tablet 3 Sig: Take 1 tablet by mouth daily. Recommended goal BP < 130/80 consistently, LDL << 70, HbA1c < 6.5. Recommended, explained and stressed the importance of healthy eating habits and exercises and lifestyle modifications Patient's diease process and its evaluation and treatment were discussed. We discussed each of for cardio vascular-related problems and discussed long-term goals and expectations for the each problem.I reviewed each of the cardiac medications in detail. Reviewed the medication with patient in detail recommended to continue taking the current medications without further changes other than changes mentioned above. Follow up as planned is predicated on symptoms stability and/or acceptable test results. Patient is urged to call in sooner should problems arise or if there is no improvement in cardiac symptoms. ER warning signs and symptoms explained and patient verbalized understanding. My diagnostic impression and treatment plans were discussed at length with the patient. All side effects as well as drug-drug interactions and risks discussed at length. Ample opportunity was offered and encouraged to ask questions during this visit and patient appreciated the answers given by me andverbzalised statisfcation in the answers given. We reviewed the [place] [employer] recommendations for reduction of overall cardio vascular risk. The importance of monitoring the blood pressure carefully both at home on regular basis along with other physicians appointment was stressed in detail. In addition we discussed target LDL levels for optimal risk reduction. It was advised that to daily physical activity be performed with 30 minutes of sustained exercise for both cardio vascular fitness and improvement for generalized medical health and well-being. Thank you for allowing us to participate in the care of Cee Guthrie. If you have any questions or concerns please feel free to call our office at [phone]. I would be happy to be of further assistance for Cee Guthrie wellbeing. Jasen Miller MD [employer], Division of Cardiology [facility] documented in this encounter Plan of Treatment Date Type Specialty Care Team Description 05/11/2020 Office Visit Family Medicine Michela Zendejas MD [address] [place] [address] [phone] 03/29/2021 Office Visit Cardiology Tequila Miller MD [address] [place] [address] [place] [address] [phone] Name Type Priority Associated Diagnoses Order S chedule EKG-12 LEAD ROUTINE HEART STATION Routine Family history of Or dered: 03/30/2020 premature CAD Essential hypertension Metabolic syndro me Palpitations LIPID PANEL LAB Routine Family history of 1 Occurren colin starting (88783)(TOTAL premature CAD 03/30/2020 until CHOLESTEROL, Essential 03/29/2021 TRIGLYCERIDES, HDL) hypertension Metabolic syndro me Palpitations Dyslipidemia Dyslipidemia, goal LDL below 70 Health Maintenance Due Date Last Done Comments COLON CANCER SCREENING ANNUAL 12/01/2003 FIT/FOBT COLON CANCER SCREENING FIT 12/01/2003 DNA EVERY 3 YEARS COLON CANCER SCREENING 12/01/2003 SIGMOIDOSCOPY EVERY 5 YEARS COLONOSCOPY 12/01/2003 Colorectal Cancer Screening 12/01/2003 Medicare Wellness Visit 02/26/2020 02/25/2019 LUNG CANCER SCREEN: 03/04/2020 03/04/2019 Recommended for [...] 05/12/2019, 01/24/2019 URINE MICROALBUMIN 11/09/2020 11/10/2019, 02/25/2019 Breast Cancer Screening 03/28/2021 03/28/2020, (MAMMOGRAM) 03/04/2019 Osteoporosis Screening 03/04/2029 03/04/2019 HEPATITIS C (HCV) SCREEN Completed 02/25/2019 INFLUENZA VACCINE Completed 03/02/2020, 02/25/2019 PNEUMOCOCCAL VACCINES 65+ Completed 03/02/2020, 02/25/2019 documented as of this encounter Results Not on filedocumented in this encounter Visit Diagnoses Diagnosis Essential hypertension - Primary Unspecified essential hypertension Family history of premature CAD Family history of ischemic heart disease Metabolic syndrome Dysmetabolic Syndrome X Palpitations Dyslipidemia Other and unspecified hyperlipidemia Dyslipidemia, goal LDL below 70 Other and unspecified hyperlipidemia documented in this encounter Insurance Payer Benefit Plan / Subscriber ID Effective Phone Address T ype Group Dates MEDICARE MEDICARE PART [id number] 2018-Prese [phone] & [address] nt [id number] [place] [phone] [employer] [facility] [facility] [id number] 2018-Prese I ndemnity [employer] nt documented as of this encounter
--- OUTSIDE RECORDS SUMMARY | 2020-05-25 17:15 | XMS REPORT | Summary of Care ---
:1955 Author Organization [facility] Address [address] [place] [address] Care Team Providers Name Role Phone Waqar Zendejas MD Primary Care Provider Geovanna Miller MD Unavailable Shonda Flores Unavailable Reason for Visit Reason Comments Follow-up diabetes Encounter Details Date Type Department Care Team Description 05/11/2020 Office Visit [facility] Family Waqar Zendejas Type 2 diabetes mellitus without complication, without long-term current use of insulin (Primary Dx); Medicine - Christine Jama MD Essential hypertension; [address] [place] [address] Dyslipidemia; [place], [place] Vitamin D deficiency; [place] [address] Nutritional counseling [phone] Allergies Active Allergy Reactions Severity Noted Date Comments Lisinopril Cough 09/22/2019 documented as of this encounter (statuses as of 05/11/2020) Medications Medication Sig Dispensed Refills Start Date End Date Status carvediloL (COREG) Take 1 tablet 180 tablet 3 03/30/202006/28 Active 6.25 mg by mouth 2 tabletIndications: (two) times Family history of daily with premature CAD, meals for 90 Essential days. hypertension, Metabolic syndrome, Palpitations losartan 25 mg Take 1 tablet 90 tablet 3 03/30/2020 Active tabletIndications: by mouth daily. Family history of premature CAD, Essential hypertension, Metabolic syndrome, Palpitations documented as of this encounter (statuses as of 05/11/2020) Active Problems Problem Noted Date Pelviectasis, renal 11/22/2019 Fatty liver 11/22/2019 Erythrocytosis 11/11/2019 Abnormal liver function tests 11/11/2019 Dyslipidemia 11/11/2019 Vitamin D deficiency 11/11/2019 Osteopenia 03/04/2019 Essential hypertension 02/11/2019 Type 2 diabetes mellitus without complications 019 Tobacco use 02/11/2019 documented as of this encounter (statuses as of 05/11/2020) Immunizations Name Administration Dates Next Due Influenza [...] been in contact with No / Unsure 05/11/2020 9:13 AM AZURE PRINCIPAL SOLUTION SPECIALIST someone who was confirmed or suspected to have Coronavirus / COVID-19? documented as of this encounter Last Filed Vital Signs Vital Sign Reading Time Taken Comments Blood Pressure 124/79 05/11/2020 9:14 AM AZURE PRINCIPAL SOLUTION SPECIALIST Pulse 81 05/11/2020 9:14 AM AZURE PRINCIPAL SOLUTION SPECIALIST Temperature 36.2 C (97.1 F) 05/11/2020 9:14 AM AZURE PRINCIPAL SOLUTION SPECIALIST Respiratory Rate - - Oxygen Saturation - - Inhaled Oxygen Concentration - - Weight 83.5 kg (184 lb) 05/11/2020 9:14 AM AZURE PRINCIPAL SOLUTION SPECIALIST Height 165.1 cm (5' 5") 05/11/2020 9:14 AM AZURE PRINCIPAL SOLUTION SPECIALIST Body Mass Index 30.62 05/11/2020 9:14 AM AZURE PRINCIPAL SOLUTION SPECIALIST documented in this encounter Progress Notes Waqar Zendejas MD - 05/11/2020 8:45 AM CST CC: Chief Complaint Patient presents with Follow-up diabetes HPI Cee Guthrie is a 64 year old F who presents for follow-up of DM2, HTN, and HLD. DM2 follow-up Medication compliance: Diet-controlled. Dietary compliance: Good, avoids concentrated sweets. Exercise frequency: The patient is active but doesn't formally exercise. Last Two A1C Results ([facility]/, [place], [place]) Recent Labs 05/12/19 0854 11/10/19 1214 HGBA1C 6.3* 6.4* Glucose readings: Doesn't self-monitor. Associated symptoms: None. Denies chest pain, visual changes, numbness/tingling/paresthesia of extremities, ulcers, polyuria, or polydipsia. Last Ophthalmology visit: 04/2020. HTN, HLD follow-up Medication compliance: Good. Denies adverse medication side effects. Dietary compliance: Good. Exercise frequency: The patient is active but doesn't formally exercise. Blood pressure readings: <130/<80. Associated symptoms: None. Denies cp, SOB, palpitations, edema, orthopnea, PND, syncope, claudication, dizziness, headaches, visual changes, or focal weakness. Cardiovascular screening (ex. EKG, stress test) in the past 3 years?: Yes, she is followed at regular intervals by [facility] Cardiology. Allergies Allergen Reactions Lisinopril Cough Current Outpatient Medications: carvediloL (COREG) 6.25 mg tablet, Take 1 tablet by mouth 2 (two) times daily with meals for 90days., Disp: 180 tablet, Rfl: 3 losartan 25 mg tablet, Take 1 tablet by mouth daily., Disp: 90 tablet, Rfl: 3 Past Medical History: Diagnosis Date Abnormal liver function tests 11/11/2019 Dyslipidemia 11/11/2019 Erythrocytosis 11/11/2019 Essential hypertension 02/11/2019 Fatty liver 11/22/2019 Osteopenia Pelviectasis, renal 11/22/2019 Type 2 diabetes mellitus without complications 02/11/2019 Vitamin D deficiency 11/11/2019 Past Surgical History: Procedure Laterality Date GANGLION EXCISION Family History Problem Relation Age of Onset Hypertension Mother Hypertension Sister Diabetes Sister Heart Sister Coronary Heart Disease Sister Social History Socioeconomic History Marital status: Spouse [...] file Gets together: Not on file Attends scientologist service: Not on file Active member of [...] Social History Narrative . 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 Review of Systems Constitutional: Negative. HENT: Negative. Eyes: Negative. Respiratory: Negative. Cardiovascular: Negative. Gastrointestinal: Negative. Genitourinary: Negative. Musculoskeletal: Negative. Skin: Negative. Neurological: Negative. Psychiatric/Behavioral: Negative. Endocrine: Endocrine negative Vital signs BP 124/79 | Pulse 81 | Temp 36.2 C (97.1 F) (Tympanic) | Ht 5' 5" (1.651 m) | Wt 184 lb (83.5 kg) | BMI 30.62 kg/m Physical Exam Vitals signs and nursing note reviewed. Constitutional: General: She is not in acute distress. Appearance: She is well-developed. HENT: Head: Normocephalic. Eyes: General: No scleral icterus. Conjunctiva/sclera: Conjunctivae normal. Pupils: Pupils are equal, round, and reactive to light. Neck: Musculoskeletal: Neck supple. Thyroid: No thyromegaly. Vascular: No carotid bruit. Cardiovascular: Rate and Rhythm: Normal rate and regular rhythm. Heart sounds: Normal heart sounds. No murmur. No friction rub. No gallop. Pulmonary: Effort: Pulmonary effort is normal. Breath sounds: Normal breath sounds. No wheezing, rhonchi or rales. Abdominal: General: Bowel sounds are normal. There is no distension. Palpations: Abdomen is soft. There is no mass. Tenderness: There is no abdominal tenderness. Musculoskeletal: Right lower leg: No edema. Left lower leg: No edema. Feet: Comments: Sensory exam of the foot is normal. Monofilament exam with sensation Right: 5/5, Left: 5/5. Lesions absent Ulcers Absent Peripheral pulses present 1+. Lymphadenopathy: Cervical: No cervical adenopathy. Skin: General: Skin is warm and dry. Coloration: Skin is not jaundiced or pale. Findings: No rash. Neurological: General: No focal deficit present. Mental Status: She is alert and oriented to person, place, and time. Psychiatric: Mood and Affect: Mood normal. Behavior: Behavior normal. Thought Content: Thought content normal. Judgment: Judgment normal. LABS: CBC CMP WBC (10*3/L) Date Value 11/10/2019 9.42 NA (mmol/L) Date Value 11/10/2019 138 RBC (10*6/L) Date Value 11/10/2019 5.59 (H) K (mmol/L) Date Value 11/10/2019 4.7 PLT (10*3/L) Date Value 11/10/2019 260 CALCIUM (mg/dL) Date Value 11/10/2019 9.2 HGB (g/dL) Date Value 11/10/2019 16.8 (H) CL (mmol/L) Date Value 11/10/2019 107 HCT (%) Date Value 11/10/2019 49.6 (H) BUN (mg/dL) Date Value 11/10/2019 15 LIPID PANEL CREATININE (mg/dL) Date Value 11/10/2019 0.66 CHOL (mg/dL) Date Value 11/10/2019 162 GLUCOSE (mg/dL) Date Value 11/10/2019 97 LDL CHOL (mg/dL) Date Value 11/10/2019 103 CO2 TOTAL (mmol/L) Date Value 11/10/2019 24 HDL (mg/dL) Date Value 11/10/2019 31 (L) ALBUMIN Date Value Ref Range Status 11/10/2019 4.4 3.5 - 5.0 g/dL Final TRIG (mg/dL) Date Value 11/10/2019 141 T PROTEIN Date Value Ref Range Status 11/10/2019 7.2 6.3 - 8.2 g/dL Final TSH TOTAL BILI Date Value Ref Range Status 11/10/2019 0.6 0.1 - 1.1 mg/dL Final TSH (mIU/L) Date Value 11/10/2019 1.32 No components found for: BILIUNCOM No results found for: BILICONJ ALT(SGPT) Date Value Ref Range Status 01/24/2019 68 (H) 9 - 51 U/L Final ALTv Date Value Ref Range Status 11/10/2019 48 (H) 5 - 35 U/L Final AST(SGOT) Date Value Ref Range Status 11/10/2019 41 (H) 13 - 40 U/L Final ALK PHOS Date Value Ref Range Status 11/10/2019 82 34 - 122 U/L Final ASSESSMENT/PLAN Diagnoses and all orders for this visit: Type 2 diabetes mellitus without complication, without long-term current use of insulin Based on the history I gauge the patient's recent diabetes control as unknown given she doesn't selfmonitor her glucose. The patient was told to continue the current treatment plan and we will reassess the patient's diabetes control with an A1c test. The patient should follow a diabetic diet and referral to a Electric Hoist Operator will be recommended if the patient's diabetes control is suboptimal. The patient should get at least 150 mins of exercise per week. The patient should self monitor his/her glucose and bring a record of glucose readings to each visit. The patient should see an Ophthalmologistat least annually for a dilated diabetic eye exam. The patient should see the Glass Fitter for routine foot care and diabetic shoes if appropriate. The patient has or will be educated regarding potential complications of diabetes including retinopathy, neuropathy, nephropathy, and cardiovascular disease. Pneumococcal and annual influenza vaccination are recommended if the patient is not UTD and has no contraindications. Statin and ACEI or ARB therapy are recommended if they have not already been prescribed and if there are no contraindications. - COMP. METABOLIC PANEL (49259); Standing - GLYCOSYLATED HEMOGLOBIN (A1C); Standing - LIPID PANEL (78716)(TOTAL CHOLESTEROL, TRIGLYCERIDES, HDL); Standing Essential hypertension The patient's blood pressure goal is <130/<80. Continue current antihypertensive medication(s). The patient should follow a low sodium diet/DASH diet and should exercise for at least 150 mins per week as part of a heart healthy lifestyle (if followed by a Fitting Room Supervisor the patient should seek clearance for exercise). The patient should self-monitor his/her blood pressure once-twice daily varying the times when it is checked and to bring the record of readings to each office visit. The patient should follow-up sooner if the blood pressure is trending >/=140/90. An EKG should be done q1-3 years for cardiac surveillance. If not already followed by Cardiology, the patient should see a Fitting Room Supervisor for consultation if there is a family history of heart disease in a 1st degree relative, if any cardiovascular symptomatology develops, and for HTN that is resistant to treatment. The patient should seek immediate ER evaluation for acute symptoms such as chest pain, SOB, syncope, etc. The patient or caregiver understands the potential consequences of uncontrolled HTN including heart disease, renal failure, stroke, etc. - COMP. METABOLIC PANEL (53633); Standing Dyslipidemia The patient is currently not on antihyperlipidemic pharmacotherapy. The patient wants to work on lifestyle modifications to try to improve her lipids. The patient understands statin therapy can provide life-saving benefits for patients at risk for cardiovascular disease and stroke. The patient should follow a low fat, low cholesterol diet. The patient should also exercise regularly as part of a heart healthy lifestyle (if followed by a Fitting Room Supervisor the patient should seek clearance for exercise). - COMP. METABOLIC PANEL (99771); Standing - LIPID PANEL (91100)(TOTAL CHOLESTEROL, TRIGLYCERIDES, HDL); Standing Vitamin D deficiency I will reassess her vitamin D level. - VITAMIN D, 25-OH; Standing Obesity (BMI 30.0-39.9), Nutritional counseling Nutritional/Exercise Counseling and Education: - Counseled on diet, exercise, weight control and goals - Follow-Up plan: -Follow up visit with BMI in 6 Months Plan of care, desired health behaviors, goals, Ddx, and any prescribed medications were discussed with the patient. This visit did not involve counseling and coordination that comprised more than 50% of the visit time. Education resources and self-management tools were provided/reviewed with the AVS. Patient/guardian/family verbalized understanding and agrees to the plan of care. Barriers to care: None. Ability to manage care: Good. Advanced care planning (living will) information was not given/offered to the patient to review for discussion at a future visit. If applicable, the [place] PMPdatabase was accessed to review any controlled substance prescription claims data. If the patient is taking prescribed medications, the [place] prescription claims data in [employer] was reviewed to assess patient compliance with the medication treatment plan. Follow-up: Return in about 6 months (around 11/09/2020) for Medicare AWV and A1c check. Follow-up sooner if any problems or concerns. E PRINCIPAL SOLUTION SPECIALIST documented in this encounter Plan of Treatment Date Type Specialty Care Team Description 11/06/2020 Office Visit Family Medicine Michela Zendejas MD [address], [place] [phone] 03/29/2021 Office Visit Cardiology Tequila Miller MD [address] [place] [address] [place] [phone] Name Type Priority Associated Diagnoses Date/Ti me VITAMIN D, 25-OH LAB Routine Vitamin D deficiency 04/2020 9:49 AM AZURE PRINCIPAL SOLUTION SPECIALIST Name Type Priority Associated Diagnoses Order S chedule VITAMIN D, 25-OH LAB Routine Vitamin D deficiency 1 O ccurrences starting 05/11/2020 until 1 Health Maintenance Due Date Last Done Comments COLON CANCER SCREENING ANNUAL 12/01/2003 FIT/FOBT COLON CANCER SCREENING FIT 12/01/2003 DNA EVERY 3 YEARS COLON CANCER SCREENING 12/01/2003 SIGMOIDOSCOPY EVERY 5 YEARS COLONOSCOPY 12/01/2003 LUNG CANCER SCREEN: 03/04/2020 03/04/2019 Recommended for age 55-80 with 30 + pack year history HgA1C 05/11/2020 11/10/2019, 05/12/2019, 01/24/2019 DTaP,Tdap,and Td Vaccines (1 05/12/2020 Pos tponed from 1972 - Tdap) (Insurance / Fin ancial) Zoster Recombinant Vaccine 05/12/2020 Postp oned from 12/01/2003 (SHINGRIX) (1 of 2) (Insurance / Financial) Colorectal Cancer Screening 10/30/2020 Post poned from 12/01/2003 (Refused) CREATININE (SERUM) 11/09/2020 11/10/2019, 05/12/2019, 01/24/2019 Depression Screening 11/09/2020 11/10/2019 FOOT EXAM 11/09/2020 11/10/2019, 11/10/2019, 02/11/2019 LDL-C 11/09/2020 11/10/2019, 05/12/2019, 01/24/2019 URINE MICROALBUMIN 11/09/2020 11/10/2019, 02/25/2019 Breast Cancer Screening 03/28/2021 03/28/2020, (MAMMOGRAM) 03/04/2019 EYE EXAM 04/01/2021 04/01/2020 Medicare Wellness Visit 05/11/2021 02/25/2019 Postpone d from 02/26/2020 (Alternative Tang delines) Osteoporosis Screening 03/04/2029 03/04/2019 HEPATITIS C (HCV) SCREEN Completed 02/25/2019 INFLUENZA VACCINE Completed 03/02/2020, 02/25/2019 PNEUMOCOCCAL VACCINES 65+ Completed 03/02/2020, 02/25/2019 documented as of this encounter Results LIPID PANEL (89547)(TOTAL CHOLESTEROL, TRIGLYCERIDES, HDL) (05/11/2020 9:49 AM AZURE PRINCIPAL SOLUTION SPECIALIST) Pathologist Sig nature CHOL 141 120 - 200 mg/dL [facility] HDL 34 (L) >50 mg/dL [facility] HDLC RATIO 4.1 <=4.5 [facility] TRIG 132 30 - 170 mg/dL [facility] LDL CHOL 81 <=160 mg/dL [facility] VLDL 26 5 - 60 mg/dL [facility] Specimen Blood Performing Organization Address City/State/Zipcode Phone Number [facility] CLIA: [id number] [place] [address] GLYCOSYLATED HEMOGLOBIN (A1C) (05/11/2020 9:49 AM AZURE PRINCIPAL SOLUTION SPECIALIST) Pathologist Sig nature HGB A1C 6.4 (H) 4.0 - 6.0 % [facility] Specimen Blood Narrative Performed At %A1C (NGSP) Interpretation (ADA) [facility] 4.8-5.6 Normal or (Non-Diabetic Ra nge) 5.7-6.4 Increased Risk (Pre-Diabet ic) >6.5 Diabetes Indicated Performing Organization Address City/State/Zipcode Phone Number [facility] CLIA: [id number] [place] [address] COMP. METABOLIC PANEL (33419) (05/11/2020 9:49 AM AZURE PRINCIPAL SOLUTION SPECIALIST) Pathologist Sig nature NA 141 135 - 145 mmol/L [facility] K 4.7 3.5 - 5.0 mmol/L [facility] CL 106 98 - 108 mmol/L [facility] CO2 TOTAL 24 23 - 31 mmol/L [facility] AGAP 11 2 - 16 [facility] BUN 13 7 - 23 mg/dL [facility] GLUCOSE 109 70 - 110 mg/dL [facility] CREATININE 0.62 0.50 - 1.04 [facility] mg/[facility] LABORATORY TOTAL BILI 0.7 0.1 - 1.1 mg/dL [facility] CALCIUM 9.5 8.6 - 10.6 mg/dL [facility] T PROTEIN 7.1 6.3 - 8.2 g/dL [facility] ALBUMIN 4.2 3.5 - 5.0 g/dL [facility] ALK PHOS 83 34 - 122 U/L [facility] ALTv 22 5 - 35 U/L [facility] AST(SGOT) 23 13 - 40 U/L [facility] eGFR Calculation 96.3 mL/min/1.73m2 [facility] (Non-) [facility] LABORATOR Y eGFR Calculation 116.7 mL/min/1.73m2 [facility] ([facility]) [facility] Specimen Blood Narrative Performed At [facility] ([facility] and Staging of Kidney Disease* + + +- + | GFR (mL/min/1.73 m2) | With Kidney Damage | Without Kidney Damage + + +- + | >90 | Stage one | Normal + + +- + | 60-89 | Stage two | Decreased GFR + + +- + | 30-59 | Stage three | Stage three + + +- + | 15-29 | Stage four | Stage four + + +- + | <15 (or dialysis) | Stage five | Stage five + + +- + *Each stage assumes the associated GFR level has been in effect for at least three months. Stages 1 to 5, with or without kidney disease, indicate chronic kidney disease. Notes: Determination of stages one and two (with eGFR >59mL/min/1.73 m2) requires estimation of kidney damage for at least three months as defined by structural or functional abnormalities of the kidney, manifested by either: Pathological abnormalities or Markers of kidney damage (including abnormalities in the composition of the blood or urine or abnormalities in imaging tests). Performing Organization Address City/State/Zipcode Phone Number [facility] CLIA: [id number] [place] [address] documented in this encounter Visit Diagnoses Diagnosis Type 2 diabetes mellitus without complic ation, without long-term current use of insulin - Primary Essential hypertension Unspecified essential hypertension Dyslipidemia Other and unspecified hyperlipidemia Vitamin D deficiency Unspecified vitamin D deficiency Nutritional counseling documented in this encounter Insurance Payer Benefit Plan / Subscriber ID Effective Phone Address T ype Group Dates MEDICARE MEDICARE PART [id number] 2018-Prese [phone] Medicare A & B nt [id number] [place] [phone] [facility] [id number] 2018-Prese I ndemnity [employer] nt documented as of this encounter
--- OUTSIDE RECORDS SUMMARY | 2020-05-25 17:15 | XMS REPORT | Summary of Care ---
:1955 Author Organization [facility] Address [address] [place] [address] Care Team Providers Name Role Phone Waqar Zendejas MD Primary Care Provider Geovanna Miller MD Unavailable Shonda Flores Unavailable Reason for Visit Reason Comments Follow-up 6mo Ekg Done today in Office Encounter Details Date Type Department Care Team Description 03/30/2020 Office Visit [facility] Tequila Miller Essential hyp ertension (Primary Dx); Cardiology- Christine Austin MD Family history of premature CAD; [address] [place] [address] [facility] Metabolic sean; [address], [address] Palpitations; [place], [place] Dyslipidemia; [phone] Dyslipidemia, goal LDL below 70 [phone] Allergies Active Allergy Reactions Severity Noted Date [...] Miller MD - 03/30/2020 10:30 AM CDT [facility] Cardiology Consult Note Patient: Cee Guthrie Date [...] file Gets together: Not on file Attends taoism service: Not on file Active member of [...] Social History Narrative . 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 ALLERGIES Allergies Allergen Reactions Lisinopril Cough MEDICATIONS [...] 11/10/2019 103 The 10-year ASCVD risk score (Kinston AZEEM Jr., et al., 2013) is: 25.9% [...] in the answers given. We reviewed the [place] [employer] recommendations for reduction of overall [...] feel free to call our office at [phone]. I would be happy to be of further assistance for Cee Guthrie wellbeing. Jasen Miller MD Piano Machine Operator, Division of Cardiology [facility] documented in this encounter Plan of Treatment Date Type Specialty Care Team Description 05/11/2020 Office Visit Family Medicine Michela Zendejas MD [address] [place] [address] [phone] 03/29/2021 Office Visit Cardiology Tequila Miller MD [address] [place] [address] [place] [address] [phone] Name Type Priority Associated Diagnoses Order S chedule EKG-12 LEAD ROUTINE HEART STATION Routine Family history of Or dered: 03/30/2020 premature CAD Essential hypertension Metabolic syndro me Palpitations LIPID PANEL LAB Routine Family history of 1 Occurren colin starting (57163)(TOTAL premature CAD 03/30/2020 until CHOLESTEROL, Essential 03/29/2021 [...] T ype Group Dates MEDICARE MEDICARE PART [id number] 2018-Prese [phone] Medicare A & B nt [id number] [place] [phone] [facility] [id number] 2018-Prese I ndemnity [employer] nt documented as of this encounter
--- OUTSIDE RECORDS SUMMARY | 2020-05-25 17:15 | XMS REPORT | Summary of Care ---
:1955 Author Organization [facility] Address [address] [place] [address] Care Team Providers Name Role Phone Waqar Zendejas MD Primary Care Provider Geovanna Miller MD Unavailable Shonda Flores Unavailable Reason for Visit Reason Comments LAB WORK Encounter Details Date Type Department Care Team Description 05/11/2020 Key Maker Visit [facility] Family Carlyle Zendejas MD [address] [place] [phone] Type 2 diabetes mellitus without complic ation, without long- term current use of insulin; Medicine - [facility] Fam Pob I Essential hypertension; [address] [place] [address] Dyslipidem ia; [place] [address] Allergies Active Allergy Reactions Severity [...] with No / Unsure 05/11/2020 9:13 AM DRESS SHOE INSPECTOR someone who was confirmed or suspected to have Coronavirus / COVID-19? documented as of this encounter Last Filed Vital Signs Not on filedocumented in this encounter Nursing Notes Emelyn Sanchez - 05/11/2020 10:00 AM CST Venipuncture collection performed by clean technique on the left anticubitus. Total of 1 attempts were made. Slight pressure and a bandage/dressing were applied to the site(s). The patient experienced no complications. The following specimens were processed according to instructions and sent to [facility] laboratories per lab order on today: LT BLUE SST 2 RED LAV 1 PPT DK GREEN (LiHep) DK GREEN (SodH) RUSSO DK BLUE (K2) DK BLUE (S) ACD Blood Culture NIPT/NTD documented in this encounter Plan of Treatment Date Type Specialty Care Team Description 11/06/2020 Office Visit Family Medicine Michela Zendejas MD [address] [place] [phone] 03/29/2021 Office Visit Cardiology Tequila Miller MD [address] [place], [place] [phone] Health Maintenance Due Date Last Done Comments [...] filedocumented in this encounter Visit Diagnoses Diagnosis Type 2 diabetes mellitus without complic ation, without long-term current use of insulin Essential hypertension Unspecified essential hypertension Dyslipidemia Other and unspecified hyperlipidemia Vitamin D deficiency Unspecified vitamin D deficiency documented in this encounter Insurance Payer Benefit Plan / Subscriber ID Effective Phone Address T ype Group Dates MEDICARE MEDICARE PART [id number] 2018-Prese [phone] Medicare A & B nt [id number] [place] [address] [facility] [id number] 2018-Prese I ndemnity [employer] nt documented as of this encounter
--- OUTSIDE RECORDS SUMMARY | 2020-05-25 17:15 | XMS REPORT | Summary of Care ---
:1955 Author Organization [facility] [employer] Address [address] [place] [address] Care Team Providers Name Role Phone Waqar Zendejas MD Primary Care Provider Geovanna Miller MD Unavailable Shonda Flores Unavailable Reason for Visit Reason Comments Follow-up 6mo Ekg Done today in Office Encounter Details Date Type Department Care Team Description 03/30/2020 Office Visit [facility] Tequila Miller Essential hyp ertension (Primary Dx); Cardiology- Christine Austin MD Family history of premature CAD; [address] [place] [address] [facility] Metabolic sean; Drive, [address] Palpitations; [place], [place] Dyslipidemia; [phone] Dyslipidemia, goal LDL below 70 [phone] Allergies Active Allergy Reactions Severity Noted Date Comments Lisinopril Cough 09/22/2019 documented as of this encounter (statuses as of 04/04/2020) Medications Medication Sig Dispensed Refills Start Date [...] as of this encounter (statuses as of 04/04/2020) Active Problems Problem Noted Date Pelviectasis, renal 11/22/2019 Fatty liver 11/22/2019 Erythrocytosis 11/11/2019 Abnormal liver function tests 11/11/2019 Dyslipidemia 11/11/2019 Vitamin D deficiency 11/11/2019 Osteopenia 03/04/2019 Essential hypertension 02/11/2019 Type 2 diabetes mellitus without complications 019 Tobacco use 02/11/2019 documented as of this encounter (statuses as of 04/04/2020) Immunizations Name Administration Dates Next Due Influenza [...] Miller MD - 03/30/2020 10:30 AM CDT [facility] Cardiology Consult Note Patient: Cee Guthrie Date [...] file Gets together: Not on file Attends baptism service: Not on file Active member of [...] Social History Narrative . 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 ALLERGIES Allergies Allergen Reactions Lisinopril Cough MEDICATIONS [...] 11/10/2019 103 The 10-year ASCVD risk score ([place] AZEEM Jr., et al., 2013) is: 25.9% [...] in the answers given. We reviewed the [place] [employer] recommendations for reduction of overall [...] feel free to call our office at [phone]. I would be happy to be of further assistance for Cee Guthrie wellbeing. Jasen Miller MD Gold Leaf Laborer, Division of Cardiology [facility] documented in this encounter Plan of Treatment Date Type Specialty Care Team Description 05/11/2020 Office Visit Family Medicine Michela Zendejas MD [address] [place] [address] [phone] 03/29/2021 Office Visit Cardiology Tequila Miller MD [address] [address] [place] [address] [phone] Name Type Priority Associated Diagnoses Order S chedule LIPID PANEL LAB Routine Family history of 1 Occurren colin starting (28411)(TOTAL premature CAD 03/30/2020 until CHOLESTEROL, Essential hypert ension 03/29/2021 TRIGLYCERIDES, HDL) Metabolic sy ndrome Palpitations Dyslipidemia Dyslipidemia, goal LDL below 70 [...] Name Priority Date/Time Associated Diagnosis Comme nts PA ELECTROCARDIOGRAM, Routine 03/30/2020 10:49 AM Family histo ry of COMPLETE CDT premature CAD Essential hypert ension Metabolic syndro me Palpitations documented in this encounter Results Not on [...] T ype Group Dates MEDICARE MEDICARE PART [id number] 2018-Prese [phone] Medicare A & B nt [id number] [place] [id number] [facility] [id number] 2018-Prese I ndemnity [employer] nt documented as of this encounter
--- OUTSIDE RECORDS SUMMARY | 2020-05-25 17:16 | XMS REPORT | Summary of Care ---
:1955 Author Organization [facility] Address [address] [place] [address] Care Team Providers Name Role Phone Waqar Zendejas MD Primary Care Provider Geovanna Miller MD Unavailable Shonda Flores Unavailable Reason for Visit Reason Comments Follow-up diabetes Encounter Details Date Type Department Care Team Description 05/11/2020 Office Visit [facility] Family Waqar Zendejas Type 2 diabetes mellitus without complication, without long-term current use of insulin (Primary Dx); Medicine - Christine Jama MD Essential hypertension; [address] [place] [address] Dyslipidemia; [place], [place] Vitamin D deficiency; [place] [address] Nutritional counseling [phone] Allergies Active Allergy Reactions [...] with No / Unsure 05/11/2020 9:13 AM CALL CENTER SUPPORT REPRESENTATIVE someone who was confirmed or suspected to have Coronavirus / COVID-19? documented as of this encounter Last Filed Vital Signs Vital Sign Reading Time Taken Comments Blood Pressure 124/79 05/11/2020 9:14 AM CALL CENTER SUPPORT REPRESENTATIVE Pulse 81 05/11/2020 9:14 AM CALL CENTER SUPPORT REPRESENTATIVE Temperature 36.2 C (97.1 F) 05/11/2020 9:14 AM CALL CENTER SUPPORT REPRESENTATIVE Respiratory Rate - - Oxygen Saturation - - Inhaled Oxygen Concentration - - Weight 83.5 kg (184 lb) 05/11/2020 9:14 AM CALL CENTER SUPPORT REPRESENTATIVE Height 165.1 cm (5' 5") 05/11/2020 9:14 AM CALL CENTER SUPPORT REPRESENTATIVE Body Mass Index 30.62 05/11/2020 9:14 AM CALL CENTER SUPPORT REPRESENTATIVE documented in this encounter Progress Notes Waqar [...] doesn't formally exercise. Last Two A1C Results ([facility]/, [place], [place]) Recent Labs 05/12/19 0854 [...] she is followed at regular intervals by [facility] Cardiology. Allergies Allergen Reactions Lisinopril Cough [...] file Gets together: Not on file Attends druze service: Not on file Active member of [...] Social History Narrative . 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 Review of Systems Constitutional: Negative. HENT: Negative. [...] a diabetic diet and referral to a Fire Department Marine Engineer will be recommended if the patient's diabetes control is suboptimal. The patient should get at least 150 mins of exercise per week. The patient should self monitor his/her glucose and bring a record of glucose readings to each visit. The patient should see an Ophthalmologistat least annually for a dilated diabetic eye exam. The patient should see the Repacker for routine foot care and diabetic shoes [...] are no contraindications. - COMP. METABOLIC PANEL (43472); Standing - GLYCOSYLATED HEMOGLOBIN (A1C); Standing - LIPID PANEL (01850)(TOTAL CHOLESTEROL, TRIGLYCERIDES, HDL); Standing Essential hypertension The patient's blood pressure goal is <130/<80. Continue current antihypertensive medication(s). The patient should follow a low sodium diet/DASH diet and should exercise for at least 150 mins per week as part of a heart healthy lifestyle (if followed by a Spragger the patient should seek clearance for exercise). [...] by Cardiology, the patient should see a Spragger for consultation if there is a family [...] failure, stroke, etc. - COMP. METABOLIC PANEL (86648); Standing Dyslipidemia The patient is currently not [...] heart healthy lifestyle (if followed by a Spragger the patient should seek clearance for exercise). - COMP. METABOLIC PANEL (56938); Standing - LIPID PANEL (64731)(TOTAL CHOLESTEROL, TRIGLYCERIDES, HDL); Standing Vitamin D deficiency [...] at a future visit. If applicable, the [place] PMPdatabase was accessed to review any controlled substance prescription claims data. If the patient is taking prescribed medications, the [employer] prescription claims data in TheTake was reviewed to assess patient compliance with the medication treatment plan. Follow-up: Return in about 6 months (around 11/09/2020) for Medicare AWV and A1c check. Follow-up sooner if any problems or concerns. CENTER SUPPORT REPRESENTATIVE documented in this encounter Plan of Treatment Date Type Specialty Care Team Description 11/06/2020 Office Visit Family Medicine Michela Zendejas MD [address] [place], [place] [phone] 03/29/2021 Office Visit Cardiology Tequila Miller MD [address] [place] [phone] Name Type Priority Associated Diagnoses Date/Ti me VITAMIN D, 25-[place] LAB Routine Vitamin D deficiency 04/2020 9:49 AM CALL CENTER SUPPORT REPRESENTATIVE Name Type Priority Associated Diagnoses Order S [...] as of this encounter Results LIPID PANEL (80247)(TOTAL CHOLESTEROL, TRIGLYCERIDES, HDL) (05/11/2020 9:49 AM CALL CENTER SUPPORT REPRESENTATIVE) Pathologist Sig nature CHOL 141 120 - 200 mg/dL [facility] HDL 34 (L) >50 mg/dL [facility] HDLC RATIO 4.1 <=4.5 [facility] TRIG 132 30 - 170 mg/dL [facility] LDL CHOL 81 <=160 mg/dL [facility] VLDL 26 5 - 60 mg/dL [facility] Specimen Blood Performing Organization Address City/State/Zipcode Phone Number [facility] CLIA: [id number] [place] [address] GLYCOSYLATED HEMOGLOBIN (A1C) (05/11/2020 9:49 AM CALL CENTER SUPPORT REPRESENTATIVE) Pathologist Sig nature HGB A1C 6.4 (H) 4.0 - 6.0 % [facility] Specimen Blood Narrative Performed At %A1C (NGSP) Interpretation (ADA) [facility] 4.8-5.6 Normal or (Non-Diabetic Ra nge) 5.7-6.4 Increased Risk (Pre-Diabet ic) >6.5 Diabetes Indicated Performing Organization Address City/State/Zipcode Phone Number [facility] CLIA: [id number] [place] [address] COMP. METABOLIC PANEL (15489) (05/11/2020 9:49 AM CALL CENTER SUPPORT REPRESENTATIVE) Pathologist Sig nature NA 141 135 - 145 mmol/L [facility] K 4.7 3.5 - 5.0 mmol/L [facility] CL 106 98 - 108 mmol/L [facility] CO2 TOTAL 24 23 - 31 mmol/L [facility] AGAP 11 2 - 16 [facility] BUN 13 7 - 23 mg/dL [facility] GLUCOSE 109 70 - 110 mg/dL [facility] CREATININE 0.62 0.50 - 1.04 [facility] mg/[facility] LABORATORY TOTAL BILI 0.7 0.1 - 1.1 mg/dL [facility] CALCIUM 9.5 8.6 - 10.6 mg/dL [facility] T PROTEIN 7.1 6.3 - 8.2 g/dL [facility] ALBUMIN 4.2 3.5 - 5.0 g/dL [facility] ALK PHOS 83 34 - 122 U/L [facility] ALTv 22 5 - 35 U/L [facility] AST(SGOT) 23 13 - 40 U/L [facility] eGFR Calculation 96.3 mL/min/1.73m2 [facility] (Non-) [facility] eGFR Calculation 116.7 mL/min/1.73m2 [facility] ([facility]) [facility] Specimen Blood Narrative Performed At Association of Glomerular Filtration Rate (GFR) [facility] and Staging of Kidney Disease* + [...] tests). Performing Organization Address City/State/Zipcode Phone Number [facility] CLIA: [id number] [place] [address] documented in this [...] T ype Group Dates MEDICARE MEDICARE PART [id number] 2018-Prese [phone] Medicare A & B nt [id number] [place] [phone] [facility] [id number] 2018-Prese I ndemnity [employer] nt documented as of this encounter
--- OUTSIDE RECORDS SUMMARY | 2020-05-25 17:16 | XMS REPORT | Continuity of Care Document ---
:1955 Author Organization [facility] Address [address] [place] [address] [address]. [address] [place] [address] Care Team Providers Name Role Phone Cristiana GOTTI, A Attending Clinician Problems This patient has no known problems. Allergies, Adverse Reactions, Alerts This patient has no known allergies or adverse reactions. Medications This patient has no known medications. Procedures This patient has no known procedures. Encounters Start End Encounter Admission Attending Care Care Encounter Source Date/Time Date/Time Type Type Clinicians Facility Department ID 2020-05-11 2020-05-11 Office REBECCA Zendejas [id number] 08:30:45 09:29:13 Visit [facility] [id number] [place] [id number] [place] [id number] nal 044 Office [address] One Results This patient has no known results.
--- OUTSIDE RECORDS SUMMARY | 2020-05-25 17:16 | XMS REPORT | Summary of Care ---
:1955 Author Organization [facility] Address [address] [place] [id number] Care Team Providers Name Role Phone Waqar Zendejas MD Primary Care Provider Geovanna Miller MD Unavailable Shonda Flores Unavailable Reason for Visit Reason Comments Follow-up diabetes Encounter Details Date Type Department Care Team Description 05/11/2020 Office Visit [facility] Family Waqar Zendejas Type 2 diabetes mellitus without complication, without long-term current use of insulin (Primary Dx); Medicine - Christine Jama MD Essential hypertension; [address] [place] [address] Dyslipidemia; [place], [place] Vitamin D deficiency; [place] [address] Nutritional counseling [phone] Allergies Active Allergy Reactions [...] with No / Unsure 05/11/2020 9:13 AM MARGIN TRIMMER someone who was confirmed or suspected to have Coronavirus / COVID-19? documented as of this encounter Last Filed Vital Signs Vital Sign Reading Time Taken Comments Blood Pressure 124/79 05/11/2020 9:14 AM MARGIN TRIMMER Pulse 81 05/11/2020 9:14 AM MARGIN TRIMMER Temperature 36.2 C (97.1 F) 05/11/2020 9:14 AM MARGIN TRIMMER Respiratory Rate - - Oxygen Saturation - - Inhaled Oxygen Concentration - - Weight 83.5 kg (184 lb) 05/11/2020 9:14 AM MARGIN TRIMMER Height 165.1 cm (5' 5") 05/11/2020 9:14 AM MARGIN TRIMMER Body Mass Index 30.62 05/11/2020 9:14 AM MARGIN TRIMMER documented in this encounter Progress Notes Waqar [...] doesn't formally exercise. Last Two A1C Results ([facility]/, [place], [place]) Recent Labs 05/12/19 0854 11/10/19 [...] she is followed at regular intervals by [facility] Cardiology. Allergies Allergen Reactions Lisinopril Cough Current [...] file Gets together: Not on file Attends mosque service: Not on file Active member of [...] History Narrative . 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 Review of Systems Constitutional: Negative. HENT: Negative. [...] a diabetic diet and referral to a Control System Manager will be recommended if the patient's diabetes control is suboptimal. The patient should get at least 150 mins of exercise per week. The patient should self monitor his/her glucose and bring a record of glucose readings to each visit. The patient should see an Ophthalmologistat least annually for a dilated diabetic eye exam. The patient should see the Senior Tech Manufacturing Engineering for routine foot care and diabetic shoes [...] are no contraindications. - COMP. METABOLIC PANEL (96632); Standing - GLYCOSYLATED HEMOGLOBIN (A1C); Standing - LIPID PANEL (21776)(TOTAL CHOLESTEROL, TRIGLYCERIDES, HDL); Standing Essential hypertension The patient's blood pressure goal is <130/<80. Continue current antihypertensive medication(s). The patient should follow a low sodium diet/DASH diet and should exercise for at least 150 mins per week as part of a heart healthy lifestyle (if followed by a Executive Chairman the patient should seek clearance for exercise). [...] by Cardiology, the patient should see a Executive Chairman for consultation if there is a family [...] failure, stroke, etc. - COMP. METABOLIC PANEL (69681); Standing Dyslipidemia The patient is currently not [...] heart healthy lifestyle (if followed by a Executive Chairman the patient should seek clearance for exercise). - COMP. METABOLIC PANEL (37614); Standing - LIPID PANEL (68212)(TOTAL CHOLESTEROL, TRIGLYCERIDES, HDL); Standing Vitamin D deficiency [...] at a future visit. If applicable, the [place] PMPdatabase was accessed to review any controlled substance prescription claims data. If the patient is taking prescribed medications, the [employer] prescription claims data in [employer] was reviewed to assess patient compliance with the medication treatment plan. Follow-up: Return in about 6 months (around 11/09/2020) for Medicare AWV and A1c check. Follow-up sooner if any problems or concerns. IN TRIMMER documented in this encounter Plan of Treatment Date Type Specialty Care Team Description 11/06/2020 Office Visit Family Medicine Michela Zendejas MD [address] [place], [place] [phone] 03/29/2021 Office Visit Cardiology Tequila Miller MD [address] [place] [address] [place] [phone] Name Type Priority Associated Diagnoses Date/Ti me VITAMIN D, 25-OH LAB Routine Vitamin D deficiency 04/2020 9:49 AM MARGIN TRIMMER Name Type Priority Associated Diagnoses Order S chedule VITAMIN D, 25-OH LAB Routine Vitamin D deficiency 1 O ccurrences starting 05/11/2020 until 1 Health Maintenance Due Date Last Done Comments COLON CANCER SCREENING 12/01/2003 ANNUAL FIT/FOBT COLON CANCER SCREENING FIT 12/01/2003 DNA EVERY 3 YEARS COLON CANCER SCREENING 12/01/2003 SIGMOIDOSCOPY EVERY 5 YEARS COLONOSCOPY 12/01/2003 LUNG CANCER SCREEN: 03/04/2020 03/04/2019 Recommended for age 55-80 with 30 + pack year history DTaP,Tdap,and Td Vaccines 05/12/2020 Postpo lio from (1 - Tdap) 1972 (Insu tony / Financial) Zoster Recombinant Vaccine 05/12/2020 Postp oned from ([facility]) (1 of 2) 12/01/2003 ( Insurance / Financial) Colorectal Cancer Screening 10/30/2020 Post poned from 12/01/2003 (Refu sed) Depression Screening 11/09/2020 11/10/2019 HgA1C 11/09/2020 05/11/2020, 11/10/2019, 05/12/2019, Additional history exists URINE MICROALBUMIN 11/09/2020 11/10/2019, 02/25/2019 Breast Cancer Screening 03/28/2021 03/28/2020, 03/04/2019 (MAMMOGRAM) EYE EXAM 04/01/2021 04/01/2020 CREATININE (SERUM) 05/11/2021 05/11/2020, 11/10/2019, 05/12/2019, Additional history exists FOOT EXAM 05/11/2021 05/11/2020, 05/11/2020, 11/10/2019, Additional history exists LDL-C 05/11/2021 05/11/2020, 11/10/2019, 05/12/2019, Additional history exists Medicare Wellness Visit 05/11/2021 02/25/2019 Postpone d from 02/26/2020 ([place] Guidelines) Osteoporosis Screening 03/04/2029 03/04/2019 HEPATITIS C (HCV) SCREEN Completed 02/25/2019 INFLUENZA VACCINE Completed 03/02/2020, 02/25/2019 PNEUMOCOCCAL VACCINES 65+ Completed 03/02/2020, 02/25/2019 documented as of this encounter Results LIPID PANEL (46639)(TOTAL CHOLESTEROL, TRIGLYCERIDES, HDL) (05/11/2020 9:49 AM MARGIN TRIMMER) Pathologist Sig nature CHOL 141 120 - 200 mg/dL [facility] HDL 34 (L) >50 mg/dL [facility] HDLC RATIO 4.1 <=4.5 [facility] TRIG 132 30 - 170 mg/dL [facility] LDL CHOL 81 <=160 mg/dL [facility] VLDL 26 5 - 60 mg/dL [facility] Specimen Blood Performing Organization Address City/State/Zipcode Phone Number [facility] CLIA: [id number] [place] [address] GLYCOSYLATED HEMOGLOBIN (A1C) (05/11/2020 9:49 AM MARGIN TRIMMER) Pathologist Sig nature HGB A1C 6.4 (H) 4.0 - 6.0 % [facility] Specimen Blood Narrative Performed At %A1C (NGSP) Interpretation (ADA) [facility] 4.8-5.6 Normal or (Non-Diabetic Ra nge) 5.7-6.4 Increased Risk (Pre-Diabet ic) >6.5 Diabetes Indicated Performing Organization Address City/State/Zipcode Phone Number [facility] CLIA: [id number] [place] [address] COMP. METABOLIC PANEL (49330) (05/11/2020 9:49 AM MARGIN TRIMMER) Pathologist [facility] nature NA 141 135 - 145 mmol/L [facility] K 4.7 3.5 - 5.0 mmol/L [facility] CL 106 98 - 108 mmol/L [facility] CO2 TOTAL 24 23 - 31 mmol/L [facility] AGAP 11 2 - 16 [facility] BUN 13 7 - 23 mg/dL [facility] GLUCOSE 109 70 - 110 mg/dL [facility] CREATININE 0.62 0.50 - 1.04 [facility] mg/dL [facility] TOTAL BILI 0.7 0.1 - 1.1 mg/dL [facility] CALCIUM 9.5 8.6 - 10.6 mg/dL [facility] T PROTEIN 7.1 6.3 - 8.2 g/dL [facility] ALBUMIN 4.2 3.5 - 5.0 g/dL [facility] ALK PHOS 83 34 - 122 U/L [facility] ALTv 22 5 - 35 U/L [facility] AST(SGOT) 23 13 - 40 U/L [facility] eGFR Calculation 96.3 mL/min/1.73m2 [facility] (Non-) [facility] Y eGFR Calculation 116.7 mL/min/1.73m2 [facility] () [facility] Specimen Blood Narrative Performed At Association of Glomerular Filtration Rate (GFR) [facility] and Staging of Kidney Disease* + [...] tests). Performing Organization Address City/State/Zipcode Phone Number [facility] CLIA: [id number] [place] [address] documented in this [...] T ype Group Dates MEDICARE MEDICARE PART [id number] 2018-Prese [phone] Medicare A & B nt [id number] [place] [phone] [facility] [id number] 2018-Prese I ndemnity [employer] nt documented as of this encounter
[2020-05-25 18:23] LABS: Absolute Lymphocytes (CBC) 1.2 K/uL (0.7-4.9); Basophils % 0.4 % (0-1.3); Hematocrit 38.2 % (36.0-45.0); Lymphocytes % 8.4 % (15.3-44.8); RBC Red Blood Cell Count 4.29 M/uL (3.86-4.86)
[2020-05-25 18:25] LABS: Protime INR 1.12
[2020-05-25 18:44] LABS: ALT/SGPT 33 U/L (12-78); AST/SGOT 31 U/L (15-37); BUN Blood Urea Nitrogen 28 mg/dL (7-18); Bicarbonate 27 mmol/L (21-32); Glucose Level 140 mg/dL (74-106); Potassium 3.8 mmol/L (3.5-5.1); Sodium Level 142 mmol/L (136-145)
[2020-05-25 18:45] LABS: Albumin 3.4 g/dL (3.4-5.0); Alkaline Phosphatase 103 U/L (45-117); Bilirubin Direct 0.3 mg/dL (0-0.2); Bilirubin Total 0.9 mg/dL (0.2-1.0); Magnesium 2.2 mg/dL (1.8-2.4); NT PRO-BNP 105 pg/mL (<125); Protein, Total 7.6 g/dL (6.4-8.2); Troponin (Emerg Dept Use Only) < 0.02 ng/mL (0.0-0.045)
[2020-05-25] MEDS ORDERED: NA CHLORIDE 0.9% 1,000 ML ONE (18:50)
[2020-05-25] MEDS ORDERED: ONDANSETRON 4 MG/2 ML VIAL ONE (18:50)
[2020-05-25] MEDS ORDERED: FENTANYL CITR 100 MCG/2 ML ONE (18:50)
--- NOTE | 2020-05-25 19:05 | RAD REPORT ---
EXAM DESCRIPTION: RAD - Chest Single View - 05/25/2020 6:37 pm CLINICAL HISTORY: syncope Chest pain. COMPARISON: Chest Single View dated 05/12/2020 FINDINGS: Portable technique limits examination quality. The lungs are grossly clear. The heart is normal in size. No displaced fractures. IMPRESSION: No acute intrathoracic process suspected.
--- NOTE | 2020-05-25 19:10 | RAD REPORT ---
EXAM DESCRIPTION: CT - Spine Lumbar Wo Con - 05/25/2020 6:49 pm CLINICAL HISTORY: Radiculopathy. PAIN COMPARISON: No comparisons TECHNIQUE: Axial noncontrast CT imaging of the lumbar spine was performed with coronal and sagittal re-formatted images. All CT scans are performed using dose optimization technique as appropriate and may include automated exposure control or mA/KV adjustment according to patient size. FINDINGS: Mild acute compression fracture affects the L1 vertebral body. Vertebral body height loss is estimated at 20%. Slight retropulsion is present at this level resulting mild canal narrowing. Mild thickening of the paraspinal soft tissues at this level. IMPRESSION: Mild acute compression fracture affects the L1 vertebral body with mild central canal na rrowing.
[2020-05-25 20:05] LABS: Blood Morphology Comment NOT SEEN (NOT SEEN); Platelet Estimate INCR; White Blood Cell Scan OK (OK)
[2020-05-25] MEDS ORDERED: MORPHINE 4 MG/ML SYR ONE (20:49)
--- NOTE | 2020-05-25 20:54 | EDPHYS ---
Physician Documentation [facility] Name: Cee Guthrie Age: 64 yrs Sex: Female : 1955 Arrival Date: 05/25/2020 Time: 17:25 Bed 19 Private MD: ED Physician Constantino Watkins HPI: 05/25 18:06 This 64 yrs old Female presents to ER via EMS with complaints of Fall Injury, pm1 Dizziness. 18:06 Details of fall: The patient fell from an upright position, while standing. Onset: The pm1 symptoms/episode began/occurred just prior to arrival. Associated injuries: The patient sustained low back area. Severity of symptoms: in the emergency department the symptoms are unchanged. The patient has been recently seen by a physician: with different complaint(s), right leg fracture. Has external fixation present. Patient was standing and got dizzy. She landed on her buttocks and is presenting to the ER with pain to her lower back area. 18:06 Negative for incontinence. No numbness or tingling to bilateral legs. no radiation of pm1 pain. Historical: - Allergies: 17:36 No Known Allergies; ca1 - Home Meds: 17:36 carvedilol Oral [Active]; losartan Oral [Active]; ca1 - PMHx: 17:36 Hypertension; ca1 - PSHx: 17:36 Leg Surgery; ca1 - Immunization history:: Adult Immunizations up to date, Pneumococcal vaccine is up to date, Flu vaccine is up to date. - Social history:: Smoking status: Patient reports the use of cigarette tobacco products, smokes one-half pack cigarettes per day. ROS: 18:06 Constitutional: Negative for fever, chills, and weight loss. pm1 18:06 Cardiovascular: Negative for chest pain, palpitations, and edema, Respiratory: Negative for shortness of breath, cough, wheezing, and pleuritic chest pain, Abdomen/GI: Negative for abdominal pain, nausea, vomiting, diarrhea, and constipation. 18:06 : Negative for injury, bleeding, discharge, and swelling, MS/Extremity: Negative for injury and deformity, Skin: Negative for injury, rash, and discoloration, Neuro: Negative for headache, weakness, numbness, tingling, and seizure. 18:06 Back: Positive for pain at rest, pain with movement, of the low back area. Exam: 18:06 Constitutional: This is a well developed, well nourished patient who is awake, alert, pm1 and in no acute distress. Head/Face: Normocephalic, atraumatic. 18:06 MS/ Extremity: Pulses equal, no cyanosis. Neurovascular intact. Full, normal range of motion. 18:06 Cardiovascular: Exam negative for acute changes, Rate: normal, Rhythm: regular, Pulses: no pulse deficits are appreciated, Heart sounds: normal. 18:06 Respiratory: Exam negative for acute changes, respiratory distress, shortness of breath, Breath sounds: are clear throughout. 18:06 Back: normal spinal alignment noted, vertebral tenderness, is appreciated at lumbar spine. 18:06 Neuro: Orientation: is normal, Sensation: numbness, is not appreciated, of the right leg and left leg, tingling, is not appreciated, of the right leg and left leg. Vital Signs: 17:26 BP 116 / 66 LA Supine (auto/lg); Pulse 93; Resp 18; Temp 98.4; Pulse Ox 95% on R/A; ca1 Weight 83.46 kg; Height 5 ft. 5 in. (165.10 cm); Pain 3/10; 18:24 BP 113 / 61 LA Supine (auto/lg); Pulse 90; Pulse Ox 100% on R/A; jp3 18:28 BP 88 / 51 LA Sitting (auto/lg); Pulse 88; Pulse Ox 98% on R/A; jp3 19:30 BP 107 / 62; Pulse 83; Resp 16 S; Pulse Ox 95% on R/A; ca1 20:30 BP 127 / 57; Pulse 93; Resp 16 S; Pulse Ox 98% on R/A; ca1 21:15 BP 122 / 62; Pulse 89; Resp 16 S; Pulse Ox 100% on R/A; ca1 22:10 BP 118 / 62; Pulse 89; Resp 16 S; Pulse Ox 99% on R/A; ca1 17:26 Body Mass Index 30.62 (83.46 kg, 165.10 cm) ca1 MDM: 17:56 Patient medically screened. pm1 18:13 ED course: Patient unable to cooperate for l-spine x-ray due to external fixator on pm1 right leg. Will order CT L-spine instead. 18:22 Data reviewed: vital signs. pm1 20:50 Counseling: I had a detailed discussion with the patient and/or guardian regarding: the pm1 historical points, exam findings, and any diagnostic results supporting the discharge/admit diagnosis, lab results, radiology results, the need for outpatient follow up, to return to the emergency department if symptoms worsen or persist or if there are any questions or concerns that arise at home. 05/25 17:57 Order name: Basic Metabolic Panel; Complete Time: 18:47 pm1 05/25 17:57 Order name: CBC with Diff; Complete Time: 20:50 pm1 05/25 17:57 Order name: LFT's; Complete Time: 18:47 pm1 05/25 17:57 Order name: Magnesium; Complete Time: 18:47 pm1 05/25 17:57 Order name: NT PRO-BNP; Complete Time: 18:47 pm1 05/25 17:57 Order name: PT-INR; Complete Time: 18:40 pm1 05/25 17:57 Order name: Troponin (emerg Dept Use Only); Complete Time: 18:47 pm1 05/25 17:57 Order name: XRAY Chest (1 view); Complete Time: 19:13 pm1 05/25 18:13 Order name: CT Lumbar Spine Wo Con; Complete Time: 19:13 pm1 05/25 20:05 Order name: CBC Smear Scan; Complete Time: 20:50 EDMS 05/25 17:57 Order name: EKG; Complete Time: 17:58 pm1 05/25 17:57 Order name: Cardiac monitoring; Complete Time: 18:47 pm1 05/25 17:57 Order name: EKG - Nurse/Tech; Complete Time: 20:41 pm1 05/25 17:57 Order name: IV Saline Lock; Complete Time: 18:08 pm1 05/25 17:57 Order name: Labs collected and sent; Complete Time: 18:08 pm1 05/25 17:57 Order name: O2 Per Protocol; Complete Time: 18:08 pm1 05/25 17:57 Order name: O2 Sat Monitoring; Complete Time: 18:08 pm1 05/25 18:13 Order name: Orthostatic Blood Pressure; Complete Time: 18:31 pm1 Administered Medications: 18:33 Drug: NS 0.9% 1000 ml Route: IV; Rate: 1000 ml; Site: right antecubital; ca1 19:30 Follow up: Response: No adverse reaction; IV Status: Completed infusion; IV Intake: ca1 1000ml 18:34 Drug: Zofran (Ondansetron) 4 mg Route: IVP; Site: right antecubital; ca1 19:30 Follow up: Response: No adverse reaction; Nausea is decreased ca1 18:36 Drug: fentaNYL (PF) 25 mcg {Note: rass 0.} Route: IVP; Site: right antecubital; ca1 19:00 Follow up: Response: No adverse reaction; Pain is unchanged, physician notified ca1 20:35 Drug: morphine 4 mg {Note: RASS 0.} Route: IVP; Site: right antecubital; wh 22:00 Follow up: Response: No adverse reaction; Pain is decreased; RASS: Alert and Calm (0) ca1 22:10 Drug: Aurora 10 mg-325 mg 1 tabs {Note: rass 0.} Route: PO; ca1 22:10 Follow up: Response: No adverse reaction; Medication administered at discharge. ca1 Disposition: 05/26 11:31 Co-signature as Attending Physician, Constantino Watkins MD I agree with the assessment and kdr plan of care. Disposition: 05/25/20 20:53 Discharged to Home. Impression: Mild acute compression fracture L1, Dehydration, Fall on same level, unspecified. - Condition is Stable. - Discharge Instructions: Spinal Compression Fracture, Dehydration, Adult, Rehydration, Adult. - Prescriptions for Tylenol- Codeine #3 300-30 mg Oral Tablet - take 2 tablets by ORAL route every 6 hours As needed; 20 tablet. - Medication Reconciliation Form, Thank You Letter, Antibiotic Education, Prescription Opioid Use form. - Follow up: Emergency Department; When: As needed; Reason: Worsening of condition. Follow up: Private Physician; When: 2 - 3 days; Reason: Recheck today's complaints, Continuance of care, Re-evaluation by your physician. - Problem is new. - Symptoms have improved. Signatures: Dispatcher [employer] Constantino Zelaya MD MD [facility] Pankaj Mcmahon, BALLOON PILOT BALLOON PILOT pm1 Eliud Brand Yeni, Nurys, RN RN ca1 Corrections: (The following items were deleted from the chart) 05/25 18:32 17:58 Lumbar Spine 3 Views+[id number].RAD.BRZ ordered. EDMS EDMS 22:20 20:53 05/25/2020 20:53 Discharged to Home. Impression: Mild acute compression fracture ca1 [id number]; Fall on same level, unspecified. Condition is Stable. Forms are Medication Reconciliation Form, Thank You Letter, Antibiotic Education, Prescription Opioid Use. Follow up: Emergency Department; When: As needed; Reason: Worsening of condition. Follow up: Private Physician; When: 2 - 3 days; Reason: Recheck today's complaints, Continuance of care, Re-evaluation by your physician. Problem is new. Symptoms have improved. pm1
--- NOTE | 2020-05-25 20:54 | ER ---
Nurse's Notes [facility] Name: Cee Guthrie Age: 64 yrs Sex: Female : 1955 Arrival Date: 05/25/2020 Time: 17:25 Bed 19 Private MD: Diagnosis: Dehydration;Fall on same level, unspecified;Mild acute compression fracture L1 Presentation: 05/25 17:32 Chief complaint: EMS states: Pt reports got dizzy and fell landed on her buttocks. Pt ca1 c/o lower back pain 08/08. Coronavirus screen: Client denies travel out of the [place] in the last 14 days. At this time, the client does not indicate any symptoms associated with coronavirus-19. Ebola Screen: Patient negative for fever greater than or equal to 101.5 degrees Fahrenheit, and additional compatible Ebola Virus Disease symptoms Patient denies exposure to infectious person. Patient denies travel to an Ebola-affected area in the 21 days before illness onset. No symptoms or risks identified at this time. Initial Sepsis Screen: Does the patient meet any 2 criteria? No. Patient's initial sepsis screen is negative. Does the patient have a suspected source of infection? No. Patient's initial sepsis screen is negative. Risk Assessment: Do you want to hurt yourself or someone else? Patient reports no desire to harm self or others. Onset of symptoms was May 25, 2020. 17:32 Method Of Arrival: EMS: [place] [facility] ca1 17:32 Acuity: RADHA 3 ca1 Triage Assessment: 17:36 General: Appears in no apparent distress. comfortable, Behavior is calm, cooperative, ca1 appropriate for age. Pain: Complains of pain in low back area Pain currently is 3 out of 10 on a pain scale. EENT: No signs and/or symptoms were reported regarding the EENT system. Neuro: Level of Consciousness is awake, alert, obeys commands, Oriented to person, place, time, situation. Cardiovascular: Heart tones S1 S2 present Capillary refill < 3 seconds Patient's skin is warm and dry. Respiratory: Airway is patent Respiratory effort is even, unlabored, Respiratory pattern is regular, symmetrical, Breath sounds are clear bilaterally. GI: Abdomen is flat, non-distended, Bowel sounds present X 4 quads. Abd is soft and non tender X 4 quads. : No signs and/or symptoms were reported regarding the genitourinary system. Derm: Skin is intact, is healthy with good turgor, Skin is pink, warm \T\ dry. Musculoskeletal: Circulation, motion, and sensation intact. with external fixator on R leg. Historical: - Allergies: 17:36 No Known Allergies; ca1 - Home Meds: 17:36 carvedilol Oral [Active]; losartan Oral [Active]; ca1 - PMHx: 17:36 Hypertension; ca1 - PSHx: 17:36 Leg Surgery; ca1 - Immunization history:: Adult Immunizations up to date, Pneumococcal vaccine is up to date, Flu vaccine is up to date. - Social history:: Smoking status: Patient reports the use of cigarette tobacco products, smokes one-half pack cigarettes per day. Screenin:39 Abuse screen: Denies threats or abuse. Denies injuries from another. Nutritional ca1 screening: No deficits noted. Tuberculosis screening: No symptoms or risk factors identified. Fall Risk Fall in past 12 months (25 points). IV access (20 points). Ambulatory Aid- Crutches/Cane/Walker (15 pts). Gait- Impaired (20 pts.). Total Lewis Fall Scale indicates High Risk Score (45 or more points). Fall prevention measures have been instituted. Side Rails Up X 2 Frequent Obs/Assessments Occuring Family Present and informed to notify staff if the need to leave the bedside As available patient and family educated on Fall Prevention Program and Strategies. Assessment: 17:39 Reassessment: see triage notes. ca1 18:30 Reassessment: Patient appears in no apparent distress at this time. Patient and/or ca1 family updated on plan of care and expected duration. Pain level reassessed. Patient is alert, oriented x 3, equal unlabored respirations, skin warm/dry/pink. 19:30 Reassessment: Patient appears in no apparent distress at this time. Patient and/or ca1 family updated on plan of care and expected duration. Pain level reassessed. Patient is alert, oriented x 3, equal unlabored respirations, skin warm/dry/pink. 20:30 Reassessment: Patient appears in no apparent distress at this time. Patient and/or ca1 family updated on plan of care and expected duration. Pain level reassessed. Patient is alert, oriented x 3, equal unlabored respirations, skin warm/dry/pink. 21:15 Reassessment: Patient appears in no apparent distress at this time. Patient and/or ca1 family updated on plan of care and expected duration. Pain level reassessed. Patient is alert, oriented x 3, equal unlabored respirations, skin warm/dry/pink. 22:10 Reassessment: Patient appears in no apparent distress at this time. Patient and/or ca1 family updated on plan of care and expected duration. Pain level reassessed. Patient is alert, oriented x 3, equal unlabored respirations, skin warm/dry/pink. Vital Signs: 17:26 BP 116 / 66 LA Supine (auto/lg); Pulse 93; Resp 18; Temp 98.4; Pulse Ox 95% on R/A; ca1 Weight 83.46 kg; Height 5 ft. 5 in. (165.10 cm); Pain 3/10; 18:24 BP 113 / 61 LA Supine (auto/lg); Pulse 90; Pulse Ox 100% on R/A; jp3 18:28 BP 88 / 51 LA Sitting (auto/lg); Pulse 88; Pulse Ox 98% on R/A; jp3 19:30 BP 107 / 62; Pulse 83; Resp 16 S; Pulse Ox 95% on R/A; ca1 20:30 BP 127 / 57; Pulse 93; Resp 16 S; Pulse Ox 98% on R/A; ca1 21:15 BP 122 / 62; Pulse 89; Resp 16 S; Pulse Ox 100% on R/A; ca1 22:10 BP 118 / 62; Pulse 89; Resp 16 S; Pulse Ox 99% on R/A; ca1 17:26 Body Mass Index 30.62 (83.46 kg, 165.10 cm) ca1 ED Course: 17:25 Patient arrived in ED. ca1 17:34 Triage completed. ca1 17:36 Arm band placed on right wrist. ca1 17:39 Patient has correct armband on for positive identification. Placed in gown. Bed in low ca1 position. Call light in reach. Side rails up X2. Pulse ox on. NIBP on. Warm blanket given. 17:40 Nurys Jaime RN is Primary Nurse. ca1 17:40 Maintain EMS IV. Dressing intact. Good blood return noted. Site clean \T\ dry. Gauge \T\ devante 3 site: 20 gauge in RAC. 17:51 [facility] pm1 17:51 Constantino Watkins MD is Attending Physician. pm1 18:08 Initial lab(s) drawn, sent to lab. Patient maintains SpO2 saturation greater than 95% jp3 on room air. 18:10 X-ray(s) taken. jp3 18:37 XRAY Chest (1 view) In Process Unspecified. EDMS 18:49 CT Lumbar Spine Wo Con In Process Unspecified. EDMS 20:35 EKG done, by ED staff, reviewed by Pankaj Mcmahon NP. jp3 22:20 No provider procedures requiring assistance completed. IV discontinued, intact, ca1 bleeding controlled, No redness/swelling at site. Pressure dressing applied. Administered Medications: 18:33 Drug: NS 0.9% 1000 ml Route: IV; Rate: 1000 ml; Site: right antecubital; ca1 19:30 Follow up: Response: No adverse reaction; IV Status: Completed infusion; IV Intake: ca1 1000ml 18:34 Drug: Zofran (Ondansetron) 4 mg Route: IVP; Site: right antecubital; ca1 19:30 Follow up: Response: No adverse reaction; Nausea is decreased ca1 18:36 Drug: fentaNYL (PF) 25 mcg {Note: rass 0.} Route: IVP; Site: right antecubital; ca1 19:00 Follow up: Response: No adverse reaction; Pain is unchanged, physician notified ca1 20:35 Drug: morphine 4 mg {Note: RASS 0.} Route: IVP; Site: right antecubital; wh 22:00 Follow up: Response: No adverse reaction; Pain is decreased; RASS: Alert and Calm (0) ca1 22:10 Drug: [place] 10 mg-325 mg 1 tabs {Note: rass 0.} Route: PO; ca1 22:10 Follow up: Response: No adverse reaction; Medication administered at discharge. ca1 Intake: 19:30 IV: 1000ml; Total: 1000ml. ca1 Outcome: 20:53 Discharge ordered by . pm1 22:20 Discharged to home via ambulance. ca1 22:20 Condition: stable 22:20 Discharge instructions given to patient, family, Instructed on discharge instructions, follow up and referral plans. no drinking with medication, no driving heavy equipment, medication usage, Demonstrated understanding of instructions, follow-up care, medications, Prescriptions given X 2. 22:20 Patient left the ED. ca1 Signatures: Dispatcher [employer] Pankaj Thorpe, [employer] WORKER pm1 Eliud Brand Jacob jp3 Nurys Jaime, RN RN ca1
[2020-05-25] MEDS ORDERED: HYDROCODONE/APAP 10/325 TAB ONE (22:20)
[2020-05-25 22:25] VITALS: TEMP 98.4
[2020-05-25 22:33] VITALS: BP 118/62; O2SAT 99
== END 2020-05-25 22:20 | disposition home or self-care (01) ==
LOC: ER 17:10
DX: S32.019A Unspecified fracture of first lumbar vertebra, initial encounter for closed fracture (principal); E86.0 Dehydration; W19.XXXA Unspecified fall, initial encounter; Y93.89 Activity, other specified; Y92.9 Unspecified place or not applicable; I10 Essential (primary) hypertension; F17.210 Nicotine dependence, cigarettes, uncomplicated
CPT/HCPCS: 96361; 93005; 85025; 80048; 36415; 83735; 85610; 80076; 84484; 83880; 72131; 71045; 96375; 96374; 99285; J3010; J7030; J2405

== ENCOUNTER 2024-06-16 11:02 | Emergency (ER) | payer OTHER ==
--- OUTSIDE RECORDS SUMMARY | 2024-06-16 11:07 | XMS REPORT | Continuity of Care Document ---
Author Name Unknown Address [address] [facility]. [address] [place] [address] [facility] Address [address] [facility] [address] [place] [address] Care Team Providers Care Borough Coordinator Name Role Phone Waqar Segura MD Primary Care Physician [phone] KAMRON MONTGOMERY Attending Clinician Unavailable GILES SENDLU K.HBenedict Attending Clinician Lalit Skaggs MD, Sendil K.H. Attending Clinician + [phone], [facility] Attending Clinician Unavailable Giles GOTTI, Sendlu K.H. Attending Clinician + [phone], [facility] Attending Clinician Unavailable Doctor Unassigned, Millen Attending Clinician U navailable Pob, [facility] Main Attending Clinician Sommer Eden MA Attending Clinician WAQAR Leigh Attending Clinician Julito Vega DO Attending Clinician [phone] TANYA DEVINE P.A. Attending Clinician Un available ALEX DE LEON Attending Clinician Unavail KAMRON Coto M.D. Attending Clinician Waqar Miller MD Attending Clinician + [phone] CATHY WATKINS Attending Clinician SULEIMAN Patrick Attending Clinician Unavailable KAMRON MONTGOMERY Admitting Clinician Unavailable CATHY WATKINS Admitting Clinician Heidi WAQAR Huggins Admitting Clinician Unavaila ble Payers Payer Name Policy Type Policy Number Effective Date Expirati on Date Source MEDICARE PART A AND B [id number] 2018 00:00:00 Problems Condition Name Condition Details Condition Category Status Onset Date Resolution Date Last Treatment Date Treating Clinician Comments Source Pelviectas is, renal Pelviectas is, renal Disease Active 11-21 00:00: 00 [facility] Fatty liver Fatty liver Disease Active 11-21 00:00: 00 [facility] Erythrocyt osis Erythrocyt osis Disease Active 11-10 00:00: 00 [facility] Abnormal liver function tests Abnormal liver function tests Disease Active 11-10 00:00: 00 [facility] Dyslipidem ia Dyslipidem ia Disease Active 11-10 00:00: 00 [facility] Vitamin D deficiency Vitamin D deficiency Disease Active 11-10 00:00: 00 [facility] Osteopenia Osteopenia Disease Active 2018-06 0-04 00:00: 00 [facility] Essential hypertensi on Essential hypertensi on Disease Active 02-11 00:00: 00 [facility] Type 2 diabetes mellitus without complicati ons Type 2 diabetes mellitus without complicati ons Disease Active 02-11 00:00: 00 [facility] Tobacco use Tobacco use Disease Active 02-11 00:00: 00 [facility] Closed fracture of right tibial plateau, initial encounter Closed fracture of right tibial plateau, initial encounter Problem Active [facility] Allergies, Adverse Reactions, Alerts Allergy Name Allergy Type Status Severity Reaction(s) Onset Date Inactive Date Treating Clinician Comments Source LISINOPR IL DRUG INGREDI Active COUGH 09-21 00:00: 00 [facility] Lisinopr il Propensi ty to adverse reaction s Active Cough 09-21 00:00: 00 [facility] Social History Social Habit Start Date Stop Date Quantity Comments Source History of tobacco use Cigarette Smoker [facility] History SDOH Alcohol Std Drinks [facility] History SDOH Alcohol Binge [facility] History SDOH Alcohol Comment [facility] Alcohol intake 2023-04-15 00:00:00 2023-04-15 00:00:00 Ex-drinker (finding) [facility] Alcoholic beverage intake 2023-04-15 00:00:00 2023-04-15 00:00:00 Ex-drinker (finding) [facility] Exposure to SARS-CoV-2 (event) 2022-04-05 00:00:00 2022-04-15 12:31:00 Not sure [facility] Cigarettes smoked current (pack per day) - Reported 2022-04-15 00:00:00 2022-04-15 00:00:00 [facility] Cigarette pack-years 2022-04-15 00:00:00 2022-04-15 00:00:00 [facility] Tobacco use and exposure 2022-04-15 00:00:00 2022-04-15 00:00:00 Smokeless tobacco non-user [facility] History of Social function 2022-04-15 00:00:00 2022-04-15 00:00:00 [facility] History SDOH Alcohol Frequency 2019-02-11 00:00:00 2019-02-11 00:00:00 1 [facility] Sex assigned at 1955 00:00:00 1955 00:00:00 [facility] Smoking Status Start Date Stop Date Source Unknown if ever smoked [facility] Smokes tobacco daily 2022-04-15 00:00:00 [facility] Medications Ordered Medication Name Filled Medication Name Start Date Stop Date Current Medication? Ordering Clinician Indication Dosage Frequency Signature (SIG) Comments Components Source carvediloL 12.5 mg tablet 2023-06 00:00: 00 Yes [id number] TAKE 1 TABLET BY MOUTH IN THE MORNING AND 1 TABLET IN THE EVENING WITH MEAKS [facility] losartan 25 mg tablet 2023-06 00:00: 00 Yes [id number] 25mg Take 1 tablet by mouth in the morning. [facility] rosuvastati n 5 mg tablet 2023-06 00:00: 00 Yes [id number] 5mg Take 1 tablet by mouth in the morning. [facility] rosuvastati n 5 mg tablet 06-02 00:00: 00 04-18 00:00 :00 No [id number] 5mg Take 1 tablet by mouth in the morning. [facility] carvediloL 12.5 mg tablet 2022-06 00:00: 00 04-18 00:00 :00 No [id number] TAKE 1 TABLET BY MOUTH IN THE MORNING AND 1 TABLET IN THE EVENING WITH MEAKS [facility] losartan 25 mg tablet 2022-06 00:00: 00 04-18 00:00 :00 No [id number] 25mg Take 1 tablet by mouth in the morning. [facility] rosuvastati n 5 mg tablet 2022-06 00:00: 00 06-02 00:00 :00 No [id number] 5mg Take 1 tablet by mouth in the morning. [facility] CARVEDILOL 12.5 mg tablet 2022-06 00:00: 00 04-15 00:00 :00 No [id number] TAKE 1 TABLET BY MOUTH IN THE MORNING AND 1 TABLET IN THE EVENING WITH MEAKS [facility] atorvastati n 20 mg tablet 11-20 00:00: 00 04-15 00:00 :00 No 20mg Take 1 tablet by mouth at bedtime. [facility] atorvastati n 10 mg tablet 2021-06 00:00: 00 11-20 00:00 :00 No [id number] 10mg Take 1 tablet by mouth at bedtime. [facility] losartan 25 mg tablet 2021-06 00:00: 00 04-15 00:00 :00 No [id number] 25mg Take 1 tablet by mouth in the morning. [facility] carvediloL 12.5 mg tablet 2021-06 00:00: 00 04-07 00:00 :00 No [id number] 12.5mg Take 1 tablet by mouth in the morning and 1 tablet in the evening. Take with meals. [facility] carvediloL 6.25 mg tablet 2021-06 0-06 00:00: 00 04-15 00:00 :00 No 6.25mg Take 6.25 mg by mouth in the morning and 6.25 mg in the evening. Take with meals. [facility] carvediloL (COREG) 6.25 mg tablet 2020-06 16:20: 08 03-28 00:00 :00 No 6.25mg Take 6.25 mg by mouth 2 (two) times daily with meals. [facility] losartan 25 mg tablet 2020-06 00:00: 00 04-15 00:00 :00 No [id number] 25mg Take 1 tablet by mouth daily. [facility] carvediloL (COREG) 6.25 mg tablet 2020-06 00:00: 00 06-27 05:59 :00 No [id number] 6.25mg Take 1 tablet by mouth 2 (two) times daily with meals for 90 days. [facility] traMADol HCl - 50 MG Oral Tablet traMADol HCl - 50 MG Oral Tablet 06-21 00:00: 00 Yes TANYA DEVINE P.A. TAKE 1 TABLET EVERY 4 TO 6 HOURS NEEDED. [facility] losartan 25 mg tablet 2019-06 00:00: 00 03-28 00:00 :00 No [id number] 25mg Take 1 tablet by mouth daily. [facility] Immunizations Ordered Immunization Name Filled Immunization Name Date Status Comments Source SARS-COV-2 COVID-19 MODERNA 0.25ML BOOSTER VACCINE 2022-03-02 00:00:00 Completed [facility] Influenza High Dose 2022-03-02 00:00:00 Completed [facility] SARS-COV-2 COVID-19 MODERNA 0.25ML BOOSTER VACCINE 2022-03-02 00:00:00 Completed [facility] Influenza High Dose 2022-03-02 00:00:00 Completed [facility] SARS-COV-2 COVID-19 MODERNA 0.25ML BOOSTER VACCINE 2022-03-02 00:00:00 Completed [facility] Influenza High Dose 2022-03-02 00:00:00 Completed [facility] SARS-COV-2 COVID-19 MODERNA 0.25ML BOOSTER VACCINE 2022-03-02 00:00:00 Completed [facility] Influenza High Dose 2022-03-02 00:00:00 Completed [facility] SARS-COV-2 COVID-19 MODERNA 0.25ML BOOSTER VACCINE 2022-03-02 00:00:00 Completed [facility] Influenza High Dose 2022-03-02 00:00:00 Completed [facility] SARS-COV-2 COVID-19 MODERNA 0.25ML BOOSTER VACCINE 2022-03-02 00:00:00 Completed [facility] Influenza High Dose 2022-03-02 00:00:00 Completed [facility] SARS-COV-2 COVID-19 MODERNA 0.25ML BOOSTER VACCINE 2022-03-02 00:00:00 Completed [facility] Influenza High Dose 2022-03-02 00:00:00 Completed [facility] SARS-COV-2 COVID-19 MODERNA 0.25ML BOOSTER VACCINE 2022-03-02 00:00:00 Completed Influenza, High-Dose, Trivalent, PF (FLUZONE) 2022-03-02 00:00:00 Completed SARS-COV-2 COVID-19 PFIZER VACCINE 2021-01-29 00:00:00 Completed [facility] SARS-COV-2 COVID-19 PFIZER VACCINE 2021-01-29 00:00:00 Completed [facility] SARS-COV-2 COVID-19 PFIZER VACCINE 2021-01-29 00:00:00 Completed [facility] SARS-COV-2 COVID-19 PFIZER VACCINE 2021-01-29 00:00:00 Completed [facility] SARS-COV-2 COVID-19 PFIZER VACCINE 2021-01-29 00:00:00 Completed [facility] SARS-COV-2 COVID-19 PFIZER VACCINE 2021-01-29 00:00:00 Completed [facility] SARS-COV-2 COVID-19 PFIZER VACCINE 2021-01-29 00:00:00 Completed [facility] SARS-COV-2 COVID-19 PFIZER VACCINE 2021-01-29 00:00:00 Completed SARS-COV-2 COVID-19 PFIZER VACCINE 2020-12-08 00:00:00 Completed [facility] SARS-COV-2 COVID-19 PFIZER VACCINE 2020-12-08 00:00:00 Completed [facility] SARS-COV-2 COVID-19 PFIZER VACCINE 2020-12-08 00:00:00 Completed [facility] SARS-COV-2 COVID-19 PFIZER VACCINE 2020-12-08 00:00:00 Completed [facility] SARS-COV-2 COVID-19 PFIZER VACCINE 2020-12-08 00:00:00 Completed [facility] SARS-COV-2 COVID-19 PFIZER VACCINE 2020-12-08 00:00:00 Completed [facility] SARS-COV-2 COVID-19 PFIZER VACCINE 2020-12-08 00:00:00 Completed [facility] SARS-COV-2 COVID-19 PFIZER VACCINE 2020-12-08 00:00:00 Completed [facility] Influenza Virus Vaccine Quad .5 mL IM 6+ MO 2020-03-02 00:00:00 Completed [facility] Pneumococcal Polysaccharide, PPSV23 (PNEUMOVAX) 2020-03-02 00:00:00 Completed [facility] Influenza Virus Vaccine Quad .5 mL IM 6+ MO 2020-03-02 00:00:00 Completed [facility] Pneumococcal Polysaccharide, PPSV23 (PNEUMOVAX) 2020-03-02 00:00:00 Completed [facility] Influenza Virus Vaccine Quad .5 mL IM 6+ MO 2020-03-02 00:00:00 Completed [facility] Pneumococcal Polysaccharide, PPSV23 (PNEUMOVAX) 2020-03-02 00:00:00 Completed [facility] Influenza Virus Vaccine Quad .5 mL IM 6+ MO 2020-03-02 00:00:00 Completed [facility] Pneumococcal Polysaccharide, PPSV23 (PNEUMOVAX) 2020-03-02 00:00:00 Completed [facility] Influenza Virus Vaccine Quad .5 mL IM 6+ MO 2020-03-02 00:00:00 Completed [facility] Pneumococcal Polysaccharide, PPSV23 (PNEUMOVAX) 2020-03-02 00:00:00 Completed [facility] Influenza Virus Vaccine Quad .5 mL IM 6+ MO 2020-03-02 00:00:00 Completed [facility] Pneumococcal Polysaccharide, PPSV23 (PNEUMOVAX) 2020-03-02 00:00:00 Completed [facility] Influenza Virus Vaccine Quad .5 mL IM 6+ MO 2020-03-02 00:00:00 Completed [facility] Pneumococcal Polysaccharide, PPSV23 (PNEUMOVAX) 2020-03-02 00:00:00 Completed [facility] Influenza Virus Vaccine Quad .5 mL IM 6+ MO 2020-03-02 00:00:00 Completed [facility] Pneumococcal Polysaccharide, PPSV23 (PNEUMOVAX) 2020-03-02 00:00:00 Completed [facility] Influenza Virus Vaccine Quad .5 mL IM 6+ MO 2020-03-02 00:00:00 Completed [facility] Pneumococcal Polysaccharide, PPSV23 (PNEUMOVAX) 2020-03-02 00:00:00 Completed [facility] Influenza Virus Vaccine Quad .5 mL IM 6+ MO (FLUZONE/FLULAVAL/F LUARIX) 2020-03-02 00:00:00 Completed [facility] Pneumococcal Polysaccharide, PPSV23 (PNEUMOVAX) 2020-03-02 00:00:00 Completed Influenza High Dose 2019-02-25 00:00:00 Completed [facility] Pneumococcal 13 Conjugate, PCV13 (Prevnar 13) 2019-02-25 00:00:00 Completed [facility] Influenza High Dose 2019-02-25 00:00:00 Completed [facility] Pneumococcal 13 Conjugate, PCV13 (Prevnar 13) 2019-02-25 00:00:00 Completed [facility] Influenza High Dose 2019-02-25 00:00:00 Completed [facility] Pneumococcal 13 Conjugate, PCV13 (Prevnar 13) 2019-02-25 00:00:00 Completed [facility] Influenza High Dose 2019-02-25 00:00:00 Completed [facility] Pneumococcal 13 Conjugate, PCV13 (Prevnar 13) 2019-02-25 00:00:00 Completed [facility] Influenza High Dose 2019-02-25 00:00:00 Completed [facility] Pneumococcal 13 Conjugate, PCV13 (Prevnar 13) 2019-02-25 00:00:00 Completed [facility] Influenza High Dose 2019-02-25 00:00:00 Completed [facility] Pneumococcal 13 Conjugate, PCV13 (Prevnar 13) 2019-02-25 00:00:00 Completed [facility] Influenza High Dose 2019-02-25 00:00:00 Completed [facility] Pneumococcal 13 Conjugate, PCV13 (Prevnar 13) 2019-02-25 00:00:00 Completed [facility] Influenza High Dose 2019-02-25 00:00:00 Completed [facility] Pneumococcal 13 Conjugate, PCV13 (Prevnar 13) 2019-02-25 00:00:00 Completed [facility] Influenza High Dose 2019-02-25 00:00:00 Completed [facility] Pneumococcal 13 Conjugate, PCV13 (Prevnar 13) 2019-02-25 00:00:00 Completed [facility] Influenza, High-Dose, Trivalent, PF (FLUZONE) 2019-02-25 00:00:00 Completed [facility] Pneumococcal 13 Conjugate, PCV13 (Prevnar 13) 2019-02-25 00:00:00 Completed Influenza High Dose Unknown Completed [facility] Pneumococcal 13 Conjugate, PCV13 (Prevnar 13) Unknown Completed [facility] Influenza High Dose Unknown Completed [facility] Pneumococcal 13 Conjugate, PCV13 (Prevnar 13) Unknown Completed [facility] Influenza High Dose Unknown Completed [facility] Pneumococcal 13 Conjugate, PCV13 (Prevnar 13) Unknown Completed [facility] Influenza High Dose Unknown Completed [facility] Pneumococcal 13 Conjugate, PCV13 (Prevnar 13) Unknown Completed [facility] Influenza Virus Vaccine Quad .5 mL IM 6+ MO (FLUZONE/FLULAVAL/F LUARIX) Unknown Completed [facility] Pneumococcal Polysaccharide, PPSV23 (PNEUMOVAX) Unknown Completed [facility] SARS-COV-2 COVID-19 PFIZER VACCINE Unknown Completed [facility] SARS-COV-2 COVID-19 MODERNA 0.25ML BOOSTER VACCINE Unknown Completed [facility] Influenza High Dose Unknown Completed [facility] Pneumococcal 13 Conjugate, PCV13 (Prevnar 13) Unknown Completed [facility] Influenza Virus Vaccine Quad .5 mL IM 6+ MO (FLUZONE/FLULAVAL/F LUARIX) Unknown Completed [facility] Pneumococcal Polysaccharide, PPSV23 (PNEUMOVAX) Unknown Completed [facility] SARS-COV-2 COVID-19 PFIZER VACCINE Unknown Completed [facility] SARS-COV-2 COVID-19 MODERNA 0.25ML BOOSTER VACCINE Unknown Completed [facility] Influenza High Dose Unknown Completed [facility] Pneumococcal 13 Conjugate, PCV13 (Prevnar 13) Unknown Completed [facility] Influenza Virus Vaccine Quad .5 mL IM 6+ MO (FLUZONE/FLULAVAL/F LUARIX) Unknown Completed [facility] Pneumococcal Polysaccharide, PPSV23 (PNEUMOVAX) Unknown Completed [facility] SARS-COV-2 COVID-19 PFIZER VACCINE Unknown Completed [facility] SARS-COV-2 COVID-19 MODERNA 0.25ML BOOSTER VACCINE Unknown Completed [facility] Influenza High Dose Unknown Completed [facility] Pneumococcal 13 Conjugate, PCV13 (Prevnar 13) Unknown Completed [facility] Influenza Virus Vaccine Quad .5 mL IM 6+ MO (FLUZONE/FLULAVAL/F LUARIX) Unknown Completed [facility] Pneumococcal Polysaccharide, PPSV23 (PNEUMOVAX) Unknown Completed [facility] SARS-COV-2 COVID-19 PFIZER VACCINE Unknown Completed [facility] SARS-COV-2 COVID-19 MODERNA 0.25ML BOOSTER VACCINE Unknown Completed [facility] Influenza High Dose Unknown Completed [facility] Pneumococcal 13 Conjugate, PCV13 (Prevnar 13) Unknown Completed [facility] Influenza Virus Vaccine Quad .5 mL IM 6+ MO (FLUZONE/FLULAVAL/F LUARIX) Unknown Completed [facility] Pneumococcal Polysaccharide, PPSV23 (PNEUMOVAX) Unknown Completed [facility] SARS-COV-2 COVID-19 PFIZER VACCINE Unknown Completed [facility] SARS-COV-2 COVID-19 MODERNA 0.25ML BOOSTER VACCINE Unknown Completed [facility] Pneumococcal 13 Conjugate, PCV13 (Prevnar 13) Unknown Completed [facility] Influenza Virus Vaccine Quad .5 mL IM 6+ MO (FLUZONE/FLULAVAL/F LUARIX) Unknown Completed [facility] Pneumococcal Polysaccharide, PPSV23 (PNEUMOVAX) Unknown Completed [facility] SARS-COV-2 COVID-19 MODERNA 0.25ML BOOSTER VACCINE Unknown Completed [facility] Influenza High Dose Unknown Completed [facility] SARS-COV-2 COVID-19 PFIZER VACCINE Unknown Completed [facility] Influenza High Dose Unknown Completed [facility] Pneumococcal 13 Conjugate, PCV13 (Prevnar 13) Unknown Completed [facility] Influenza Virus Vaccine Quad .5 mL IM 6+ MO (FLUZONE/FLULAVAL/F LUARIX) Unknown Completed [facility] Pneumococcal Polysaccharide, PPSV23 (PNEUMOVAX) Unknown Completed [facility] SARS-COV-2 COVID-19 PFIZER VACCINE Unknown Completed [facility] SARS-COV-2 COVID-19 MODERNA 0.25ML BOOSTER VACCINE Unknown Completed [facility] Vital Signs Vital Name Observation Time Observation Value Comments S ource Systolic blood pressure 2024-04-18 14:54:00 131 mm[Hg] [facility] Diastolic blood pressure 2024-04-18 14:54:00 72 mm[Hg] [facility] Heart rate 2024-04-18 14:54:00 77 /min [facility] Body temperature 2024-04-18 14:54:00 36.67 Trena [facility] Body height 2024-04-18 14:54:00 165.1 cm [facility] Body weight 2024-04-18 14:54:00 83.507 kg [facility] BMI 2024-04-18 14:54:00 30.64 kg/m2 [facility] Oxygen saturation in Arterial blood by Pulse oximetry 2024-04-18 14:54:00 95 /min [facility] Systolic blood pressure 2023-04-15 14:47:00 130 mm[Hg] [facility] Diastolic blood pressure 2023-04-15 14:47:00 77 mm[Hg] [facility] Heart rate 2023-04-15 14:47:00 78 /min [facility] Respiratory rate 2023-04-15 14:47:00 20 /min [facility] Body height 2023-04-15 14:47:00 165.1 cm [facility] weight 2023-04-15 14:47:00 85.503 kg [facility] BMI 2023-04-15 14:47:00 31.37 kg/m2 [facility] Oxygen saturation in Arterial blood by Pulse oximetry 2023-04-15 14:47:00 94 /min [facility] Systolic blood pressure 2022-04-15 19:22:00 161 mm[Hg] [facility] Diastolic blood pressure 2022-04-15 19:22:00 80 mm[Hg] [facility] Heart rate 2022-04-15 19:22:00 83 /min [facility] Body height 2022-04-15 19:15:00 165.1 cm [facility] Body weight 2022-04-15 19:15:00 84.868 kg [facility] BMI 2022-04-15 19:15:00 31.14 kg/m2 [facility] Oxygen saturation in Arterial blood by Pulse oximetry 2022-04-15 19:15:00 94 /min [facility] Systolic blood pressure 2021-03-28 13:59:00 142 mm[Hg] [facility] Diastolic blood pressure 2021-03-28 13:59:00 87 mm[Hg] [facility] Heart rate 2021-03-28 13:59:00 87 /min [facility] Respiratory rate 2021-03-28 13:55:00 19 /min [facility] Body height 2021-03-28 13:55:00 165.1 cm [facility] Body weight 2021-03-28 13:55:00 79.697 kg [facility] BMI 2021-03-28 13:55:00 29.24 kg/m2 [facility] Oxygen saturation in Arterial blood by Pulse oximetry 2021-03-28 13:55:00 94 /min [facility] Procedures Procedure Date / Time Performed Performing Clinician Source COMP. METABOLIC PANEL (84591) 2023-05-27 14:02:00 Johann Skaggs [facility] LIPID PANEL (14469)(TOTAL CHOLESTEROL, TRIGLYCERIDES, HDL) 2023-05-27 14:02:00 Johann Skaggs [facility] CBC WITH DIFF 2023-05-27 14:02:00 Johann Skaggs [facility] GLYCOSYLATED HEMOGLOBIN (A1C) 2023-05-27 14:02:00 Johann Skaggs [facility] N-TERMINAL PRO-BNP 2023-05-27 14:02:00 Johann Skaggs [facility] TRANSTHORACIC ECHO (TTE) COMPLETE 2023-04-15 14:46:33 Johann Skaggs [facility] ASSIGNMENT OF BENEFITS 2023-04-15 13:41:52 Docto r Unassigned, Millen [facility] ASSIGNMENT OF BENEFITS 2022-11-12 16:14:48 Docto r Unassigned, Millen [facility] COMP. METABOLIC PANEL ([id number]) 2022-04-15 19:55:00 Johann Skaggs [facility] LIPID PANEL ([id number])(TOTAL CHOLESTEROL, TRIGLYCERIDES, HDL) 2022-04-15 19:55:00 Johann Skaggs [facility] CBC WITH DIFF 2022-04-15 19:55:00 Johann Skaggs [facility] N-TERMINAL PRO-BNP 2022-04-15 19:55:00 Johann Skaggs [facility] ASSIGNMENT OF BENEFITS 2022-04-15 18:32:37 Docto r Unassigned, Millen [facility] EKG-12 LEAD 2021-03-28 13:54:35 [facility] Start Date/Time End Date/Time Encounter Type Admission Type Attending Clinicians Care Facility Care Department Encounter ID Source 2021-04-05 15:08:09 Outpatient [facility] [id number] [facility] 2021-01-10 11:20:31 Outpatient KAMRON MONTGOMERY [facility] [id number] [facility] 2020-10-26 14:57:28 Outpatient [facility] [id number] [facility] 2020-10-09 07:26:15 Outpatient [facility] [id number] [facility] 2024-04-19 00:00:00 2024-04-19 11:35:03 Telephone Johann Skaggs [facility] [id number] [facility] 2024-04-18 09:30:00 2024-04-18 09:45:00 Salt Grinder Visit 2, Adc Lab Johann Skaggs 2, Adc Lab [facility] [id number] [facility] 2024-04-18 09:00:00 2024-04-18 09:18:59 [address] JOHANN SKAGGS [facility] [id number] [facility] 2024-04-18 09:00:00 2024-04-18 09:18:59 Office Visit Johann Skaggs [facility] [id number] [facility] 2023-06-02 00:00:00 2023-06-02 00:00:00 Telephone Johann Skaggs [facility] [id number] [facility] 2023-05-27 08:00:00 2023-05-27 08:12:30 Out[address] [facility] [facility] [id number] [facility] 2023-05-27 08:00:00 2023-05-27 08:12:30 Salt Grinder Visit 2, Adc Lab Johann Skaggs [facility] 1.2840.114 350.1.13.10 4.2.7.2.686 [id number] [facility] 2023-04-15 07:42:47 2023-04-15 23:59:00 Hospital Encounter Johann SkaggsBenedict [facility] 1.20.114 350.1.13.10 4.2.7.2.686 [id number] [facility] 2023-04-15 09:00:00 2023-04-15 09:31:04 Outpatient [address] J[address]ANN SKAGGS [facility] [id number] [facility] 2023-04-15 09:00:00 2023-04-15 09:31:04 Office Visit Johann Skaggs [facility] 1.2840.114 350.1.13.10 4.2.7.2.686 [id number] [facility] 2023-04-15 00:00:00 2023-04-15 00:00:00 Orders Only Doctor Unassigned, Millen [facility] 1.2.840.114 350.1.13.10 4.2.7.2.686 [id number] [id number] [facility] 2023-04-15 00:00:00 2023-04-15 00:00:00 Refill Johann Skaggs [facility] 1.2840.114 350.1.13.10 4.2.7.2.686 [id number] [facility] 2023-04-04 00:00:00 2023-04-04 00:00:00 Refill Johann Skaggs [facility] 1.2.840.114 350.1.13.10 4.2.7.2.686 [id number] [facility] 2022-11-20 00:00:00 2022-11-20 00:00:00 Telephone Johann Skaggs [facility] 1.2.840.114 350.1.13.10 4.2.7.2.686 [id number] [facility] 2022-11-12 11:30:00 2022-11-12 11:45:00 Salt Grinder Visit Pob, Adc Lab Main Johann Skaggs [facility] 1.2.840.114 350.1.13.10 4.2.7.2.686 [id number] [facility] 2022-11-12 11:30:00 2022-11-12 11:30:00 Outpatient [address] JOHANN SKAGGS [facility] [id number] [facility] 2022-11-12 00:00:00 2022-11-12 00:00:00 Orders Only Doctor Unassigned, Millen [facility] 1.2.840.114 350.1.13.10 4.2.7.2.686 [id number] [id number] [facility] 2022-04-21 00:00:00 2022-04-21 00:00:00 Telephone Johann Skaggs [facility] 1.2.840.114 350.1.13.10 4.2.7.2.686 [id number] [facility] 2022-04-16 00:00:00 2022-04-16 00:00:00 Refill Johann Skaggs [facility] 1.2.840.114 350.1.13.10 4.2.7.2.686 [id number] [facility] 2022-04-15 14:00:00 2022-04-15 14:15:00 Salt Grinder Visit 2, Adc Lab Johann Skaggs [facility] 1.2.840.114 350.1.13.10 4.2.7.2.686 [id number] [facility] 2022-04-15 13:00:00 2022-04-15 13:43:00 Outpatient [address] JOHANN SKAGGS [facility] [id number] [facility] 2022-04-15 13:00:00 2022-04-15 13:43:00 Office Visit Johann Skaggs [facility] 1.2.840.114 350.1.13.10 4.2.7.2.686 [id number] [facility] 2022-04-15 00:00:00 2022-04-15 00:00:00 Orders Only Doctor Unassigned, Millen [facility] 1.2.840.114 350.1.13.10 4.2.7.2.686 [id number] [facility] 2021-03-29 10:00:00 2021-03-29 10:00:00 Outpatient [address] JOHANN SKAGGS [facility] [id number] [facility] 2021-03-28 09:00:00 2021-03-28 09:23:43 Outpatient [address] JOHANN SKAGGS [facility] [id number] [facility] 2021-03-28 09:00:00 2021-03-28 09:23:43 Outpatient R JOHANN SKAGGS [facility] [id number] [facility] 2021-03-28 08:38:14 2021-03-28 09:23:43 Office Visit Johann Skaggs [facility] DIANNA WELSH [facility] 1.2.840.114 350.1.13.10 4.2.7.2.686 [id number] [facility] 2021-03-28 09:00:00 2021-03-28 09:00:[address] [facility] [id number] [facility] 2021-03-28 00:00:00 2021-03-28 00:00:00 Orders Only Doctor Unassigned, Millen [facility] 1.2.840.114 350.1.13.10 4.2.7.2.686 [id number] [id number] [facility] 2021-01-10 10:11:10 2021-01-10 11:25:37 Office Visit Kamron [facility] 1.2840.114 350.1.13.58 9.2.7.2.686 [id number] [facility] 2020-12-26 00:00:00 2020-12-26 00:00:00 Orders Only Sommer Koch Dianna [facility] 1.2.840.114 350.1.13.58 9.2.7.2.686 [id number] [facility] 2020-11-06 08:00:00 2020-11-06 08:00:[address] [facility] [id number] [facility] 2020-10-11 10:58:12 2020-10-12 15:44:04 Office Visit Kamron [facility] 1.2840.114 350.1.13.58 9.2.7.2.686 [id number] [facility] 2020-08-06 00:00:00 2020-08-06 00:00:00 Patient Outreach Julito Gardner [facility] 1..840.114 350.1.13.10 4.2.7.2.686 [id number] 2020-07-05 13:15:00 2020-07-05 13:15:00 Appointmen t; TANYA DEVINE P.A. ALDRIDGE, ALEXANDRA, P.A. [facility] Orthopedics Trauma [facility] [id number] [place] [facility] 2020-06-21 12:00:00 2020-06-21 12:00:00 Appointmen t; TANYA DEVINE P.A. ALDRIDGE, ALEXANDRA, P.A. [facility] Orthopedics Trauma [facility] [id number] [place] [facility] 2020-06-06 21:06:00 2020-06-08 15:45:00 Inpatient U ALEX DE LEON [address] 2020-06-07 00:00:00 2020-06-07 00:00:00 Orders Only Doctor Unassigned, Millen [facility] 1..840.114 350.1.13.10 4.2.7.2.686 [id number] [id number] 2020-06-06 08:30:00 2020-06-06 08:30:00 Appointmen t; KAMRON MONTGOMERY M.D. WARNER, STEPHEN, M.D. [facility] [id number] [place] [facility] 2020-06-04 00:00:00 2020-06-04 00:00:00 Telephone Johann Skaggs [facility] Building 1..840.114 350.1.13.10 4.2.7.2.686 [id number] [id number] 2020-05-31 09:45:00 2020-05-31 09:45:00 Appointmen t; KAMRON MONTGOMERY M.D. WARNER, STEPHEN, M.D. [facility] [id number] [place] [facility] 2020-05-28 00:00:00 2020-05-28 00:00:00 Telephone Waqar Segura [facility] Office Building One 1.114 350.1.13.10 4.2.7.2.686 [id number] 2020-05-13 00:31:00 2020-05-15 18:30:00 Inpatient E CATHY WATKINS [facility] MED [id number] [facility] 2020-05-11 08:30:45 2020-05-11 09:29:13 Office Visit Colton Esepatricjatin [facility] Office Building One .114 350.1.13.10 4.2.7.2.686 [id number] 2020-05-11 08:45:00 2020-05-11 08:45:00 [facility] [id number] [facility] 2020-03-30 10:30:00 2020-03-30 10:30:00 Outpatient R JOHANN SKAGGS [facility] [id number] [facility] 2020-03-28 00:00:00 2020-03-28 00:00:00 [facility] [id number] [facility] 2020-03-02 13:40:00 2020-03-02 13:40:00 [facility] [id number] [facility] 2020-01-26 00:00:00 2020-01-26 00:00:00 Patient Secure Msg Doctor Unassigned, Millen [facility] .114 350.1.13.10 4.2.7.2.686 [id number] [facility] 2020-01-12 13:30:00 2020-01-12 13:30:00 Outpatient R SULEIMAN CHICAS [facility] [id number] [facility] 2019-12-23 00:00:00 2019-12-23 00:00:00 Patient Secure M[facility] 1.114 350.1.13.10 4.2.7.2.686 [id number] [facility] 2019-12-23 00:00:00 2019-12-23 00:00:00 Patient Secure Msg Doctor Unassigned, Millen [facility] 1.2.840.114 350.1.13.10 4.2.7.2.686 [id number] [facility] 2019-12-20 14:45:00 2019-12-20 14:45:[address] [facility] [id number] [facility] 2019-11-16 09:43:46 2019-11-16 23:59:00 Outpatient R COLTON LARRYF[address] [facility] [id number] [facility] 2019-11-16 00:00:00 2019-11-16 00:00:00 Outpatient R COLTON [address] [facility] [id number] [facility] 2019-11-11 08:00:00 2019-11-11 08:00:00 [facility] [id number] [facility] 2019-11-10 11:15:00 2019-11-10 11:15:[address] [facility] [id number] [facility] 2019-09-22 10:30:00 2019-09-22 10:30:[address] [facility] [id number] [facility] Results Test Description Test Time Test Comments Results Result Co mments Source [id number] 15:33:17* Test Item Value Reference Range Interpretation Comme nts NT-proBNP (test code = 88346-0) 91 pg/mL <=125 Lab Interpretation (test cod e = 38635-8) Normal [facility] (87369)2023-05-27 15:25:17* Test Item Value Reference Range Interpretation Comme nts NA (test code = 0367893284) 139 mmol/L 135-145 K (test code = 3718584377) 4.7 mmol/L 3.5-5.0 CL (test code = 2245385217) 107 mmol/L 98-108 CO2 TOTAL (test code = 0770569403) 27 mmol/L 23-31 AGAP (test code = 2355250761) 5 2-16 BUN (test code = 9471962709) 16 mg/dL 7-23 GLUCOSE (test code = 8034634220) 155 mg/dL 70-110 H CREATININE (test code = 6651191763) 0.57 mg/dL 0.50-1.04 TOTAL BILI (test code = 0002311438) 0.6 mg/dL 0.1-1.1 CALCIUM (test code = 5915766880) 9.4 mg/dL 8.6-10.6 T PROTEIN (test code = 0544410659) 7.1 g/dL 6.3-8.2 ALBUMIN (test code = 5061233915) 4.0 g/dL 3.5-5.0 ALK PHOS (test code = 3461146595) 85 U/L 34-122 ALTv (test code = 1742-6) 64 U/L 5-35 H AST(SGOT) (test code = 7227132754) 53 U/L 13-40 H eGFR (test code = 04707-3) 98.5 mL/min/1.73m2 CKD-EPI eGFR (2020). Assuming creatinine has been stable day-to-day for at least three months, the eGFR indicates Category G1 (>= 90 mL/min/1.73 m2) Lab Interpretation (test code = 16578-4) [facility] (26186)(TOTAL CHOLESTEROL, TRIGLYCERIDES, HDL)2023-05-27 15:25:17* Test Item Value Reference Range Interpretation Comme nts CHOL (test code = 8061217491) 108 mg/dL 120-200 L HDL (test code = 4536936271) 37 mg/dL >=50 L HDLC RATIO (test code = 5128511877) 2.9 <=4.5 TRIG (test code = 1813129684) 147 mg/dL 30-170 LDL CHOL (test code = 15142-7) 42 mg/dL <=160 VLDL (test code = 1556726356) 29 mg/dL 5-60 Lab Interpretation (test cod e = 37949-4) Abnormal [facility] WITH [id number] 15:18:16* Test Item Value Reference Range Interpretation Comme nts WBC (test code = 6690-2) 7.66 See_Comment [Automated messa ge] The system which generated this result transmitted reference range: 4.30 - 11.10 10*3/?L. The reference range was not used to interpret this result as normal/abnormal. RBC (test code = 789-8) 5.46 See_Comment H [Automated messa ge] The system which generated this result transmitted reference range: 3.93 - 5.25 10*6/?L. The reference range was not used to interpret this result as normal/abnormal. HGB (test code = 718-7) 16.4 g/dL 11.6-15.0 H HCT (test code = 4544-3) 49.7 % 35.7-45.2 H MCV (test code = 787-2) 91.0 fL 80.6-95.5 MCH (test code = 785-6) 30.0 pg 25.9-32.8 MCHC (test code = 786-4) 33.0 g/dL 31.6-35.1 RDW-SD (test code = 17448-3) 40.6 fL 39.0-49.9 RDW-CV (test code = 788-0) 12.3 % 12.0-15.5 PLT (test code = 777-3) 218 See_Comment [Automated messa ge] The system which generated this result transmitted reference range: 166 - 358 10*3/?L. The reference range was not used to interpret this result as normal/abnormal. MPV (test code = 31905-2) 10.3 fL 9.5-12.9 NRBC/100 WBC (test code = 2162821233) 0.0 See_Comment [Automated me ssage] The system which generated this result transmitted reference range: 0.0 - 10.0 /100 WBCs. The reference range was not used to interpret this result as normal/abnormal. NRBC x10^3 (test code = 9779491570) See_Comment [Automated messa ge] The system which generated this result transmitted reference range: 10*3/?L. The reference range was not used to interpret this result as normal/abnormal. GRAN MAT (NEUT) % (test code = 770-8) 54.4 % IMM GRAN % (test code = 5465037293) 0.30 % LYMPH % (test code = 736-9) 35.8 % MONO % (test code = 5905-5) 5.4 % EOS % (test code = 713-8) 3.4 % BASO % (test code = 706-2) 0.7 % GRAN MAT x10^3(ANC) (test code = 5841088440) 4.18 10*3/uL 1.88-7.09 IMM GRAN x10^3 (test code = 9288024706) 0.00-0.06 LYMPH x10^3 (test code = 731-0) 2.74 10*3/uL 1.32-3.29 MONO x10^3 (test code = 742-7) 0.41 10*3/uL 0.33-0.92 EOS x10^3 (test code = 711-2) 0.26 10*3/uL 0.03-0.39 BASO x10^3 (test code = 704-7) 0.05 10*3/uL 0.01-0.07 Lab Interpretation (test code = 65245-4) [facility] 15:09:10* Test Item Value Reference Range Interpretation Comme nts Height (test code = 2306584079) 65 in Weight (test code = 1302989401) 187 lbs Systolic BP (test code = 2083967561) 111 mmHg Diastolic BP (test code = 3689370265) 66 mmHg Heart Rate (test code = 3032152790) 76 bpm Ao root diam (test code = 8240717726) 2.70 cm Aortic root (test code = 0857157289) 2.7 cm Ao root annulus (test code = 0318353477) 2.7 cm BSA (test code = 7851853670) 1.92 m2 LVOT diameter (test code = 4343528269) 1.67 cm LVOT area (test code = 5149281402) 2.18 cm2 LA size (test code = 2177308523) 3.2 cm ACS (test code = 5446604193) 1.68 cm LVIDD (test code = 8074891246) 3.70 cm Left Ventricular End Diastolic Volume by Teichholz Method (test code = 5605047) 59.4 mL IVS (test code = 1618836372) 1.35 cm Interventricular Septum Diastolic Thickness by 2D (test code = 4986038) 1.35 cm LVPWD (test code = 8630041198) 1.14 cm PW (test code = 6112023152) 1.14 cm 0.6-1.1 EF(Teich) (test code = 5149135505) 63.10 % LVIDS (test code = 5041041322) 2.48 cm Left Ventricular End Systolic Volume by Teichholz Method (test code = 7448136) 21.9 mL FS (test code = 9863753783) 34 % EF - 2D (test code = 09333005) 63.10 % PV PEAK VELOCITY (test code = 5991012405) 76.5 cm/s PV peak gradient (test code = 7103602671) 2.34 mmHg MV E-F slope (test code = 9698702800) 54.60 cm/s MV Peak E Jacob (test code = 2324060498) 80.2 cm/s MV valve area p 1/2 method (test code = 6424889096) 3.20 cm2 MV dec slope (test code = 9997495455) 342.30 cm/s2 MV P1/2t max jacob (test code = 7406950522) 79.70 cm/s MV Peak A Jacob (test code = 9431166192) 102.2 cm/s E/A ratio (test code = 8977972243) 0.78 ratio LVOT stroke volume (test code = 5812550709) 56.00 cm3 LVOT peak jacob (test code = 6389610197) 111.1 cm/s LVOT mn grad (test code = 3471353622) 2.0 mmHg AV LVOT peak gradient (test code = 4141024348) 4.9 mmHg LVOT peak VTI (test code = 3761554364) 25.7 cm LV V1 mean (test code = 9527392191) 63.70 cm/s Aortic valve mean velocity (test code = 4446962175) 81.2 cm/s Ao peak jacob (test code = 0537078314) 133.5 cm/s Ao VTI (test code = 4566827767) 27.0 cm AV area by cont VTI (test code = 4608322614) 2.1 cm2 AV area peak jacob (test code = 8697050317) 1.8 cm2 Ao max PG (test code = 8455722786) 7.10 mm[Hg] AV peak gradient (test code = 3533159994) 7.1 mmHg AV valve area (test code = 0635239306) 2.07 cm2 AV mean gradient (test code = 8963196529) 3.1 mmHg LAV(MOD-sp4) (test code = 4390042252) 13.70 mL LA Volume Index (BP) (test code = 5974764414) 9.2 mL/m2 LA volume (BP) (test code = 6358278038) 17.8 mL LAV(MOD-sp2) (test code = 1579638830) 21.70 mL Radiology Study observation (narrative) (test code = 79979-4) LELE (test code = LELE) ?Left?Ventricle: Left ventricle size is normal. Mild septal thickening. Normal wall motion. Normal systolic function with a visually estimated EF of 55 - 60%. There is impaired relaxation. Normal left ventricular filling pressure. ?Tricuspid?Valve: Trace transvalvular regurgitation. Insufficient tricuspid regurgitation jet to estimate RVSP . ?RA pressure is 5-10 mmHg. Left VentricleLeft ventricle size is normal. Mild septal thickening. Normal wall motion. Normal systolic function with a visually estimated EF of 55 - 60%. There is impaired relaxation. Normal left ventricular filling pressure.Right VentricleRight ventricle size is normal. Normal systolic function.Left AtriumLeft atrium size is normal.Right AtriumRight atrium size is normal.IVC/SVCRA pressure is 5-10 mmHg.Mitral ValveMitral valve structure is normal. Trace transvalvular regurgitation.Tricusp id ValveTricuspid valve structure is grossly normal. Trace transvalvular regurgitation. Insufficient tricuspid regurgitation jet to estimate RVSP . RA pressure is 5-10 mmHg.Aortic ValveAortic valve opens well.Pulmonic ValveNot well visualized. Trace transvalvular regurgitation.Ascendi ng AortaNormal sized aortic root.PericardiumNo pericardial effusion.Study DetailsStudy quality was adequate. A complete echocardiogram was performed using 2D, color flow Doppler and spectral Doppler. [facility][U] XRAY KNEE 1 OR 2 VWS RIGHT [id number] 12:48:00Images acquired, not reported on this accession number.[facility][U] XRAY TIBIA FIBULA 2 VWS RIGHT [id number] 09:28:00Images acquired, not reported on this accession number.[facility]
[2024-06-16] MEDS ORDERED: KETOROLAC 30 MG/ML INJ ONE (11:30)
[2024-06-16] MEDS ORDERED: NA CHLORIDE 0.9% 500 ML ONE (11:31)
[2024-06-16] MEDS ORDERED: DIAZEPAM 5 MG TABLET ONE (11:31)
[2024-06-16 11:36] LABS: Absolute Basophils 0.1 K/uL (0-0.5); Absolute Eosinophils 0.3 K/uL (0-0.5); Absolute Lymphocytes (CBC) 2.7 K/uL (0.7-4.9); Absolute Monocytes 0.4 K/uL (0.1-1.3); Absolute Neutrophil 5.5 K/uL (1.8-8.0); Basophils % 0.9 % (0-1.3); Eosinophils % 3.3 % (0-4.4); Hematocrit 47.2 % (36.0-45.0); Lymphocytes % 29.9 % (15.3-44.8); MCH 30.1 pg (27.0-35.0); MCHC 33.9 g/dL (32.0-36.0); MCV 88.8 fL (80-100); MPV 8.3 fL (7.6-11.3); Monocytes % 4.7 % (3.3-12.3); Neutrophils % 61.2 % (41.7-73.7); Platelets 280 thou/uL (152-406); RBC Red Blood Cell Count 5.32 M/uL (3.86-4.86); Red Cell Distribution Width 12.9 % (12.1-15.2)
[2024-06-16 11:53] LABS: Anion Gap 5.1 mEq/L (5.0-15.0); Potassium 4.1 mEq/L (3.5-5.1)
--- NOTE | 2024-06-16 12:07 | ER ---
Nurse's Notes [facility] Name: Cee Guthrie Age: 68 yrs Sex: Female : 1955 Arrival Date: 06/16/2024 Time: 11:02 Bed 16 Private MD: Diagnosis: Fall on same level, unspecified;Fracture of upper end of humerus;2-part displaced fracture of surgical neck of left humerus Presentation: 06/16 11:06 Chief complaint: EMS states: they were toned out for a fall. pt reports tripping and kc6 falling while going UP her stairs. reports hitting her head. denies LOC, no blood thinners. complains of 10/10 LFA pain. Coronavirus screen: At this time, the client does not indicate any symptoms associated with coronavirus-19. Ebola Screen: No symptoms or risks identified at this time. Initial Sepsis Screen: Does the patient meet any 2 criteria? No. Patient's initial sepsis screen is negative. Does the patient have a suspected source of infection? No. Patient's initial sepsis screen is negative. Risk Assessment: Do you want to hurt yourself or someone else? Patient reports no desire to harm self or others. Onset of symptoms was June 16, 2024. Care prior to arrival: Splint applied. Medication(s) given: Fentanyl 100 mcg IV IV initiated. 18 GA, in the right antecubital area, Oxygen administered. via nasal cannula. 11:06 [facility] 3 kc6 Historical: - Allergies: 11:08 No Known Allergies; kc6 - PMHx: 11:08 Hypertension; Hypercholesterolemia; kc6 - PSHx: 11:08 None; kc6 - Immunization history:: Client reports receiving the 2nd dose of the Covid vaccine, Flu vaccine is not up to date. - Infectious Disease History:: Denies. - Social history:: Smoking status: Patient reports the use of cigarette tobacco products, smokes one pack cigarettes per day. Screenin:09 [facility] ED Fall Risk Assessment (Adult) History of falling in the last 3 months, kc6 including since admission Yes- single mechanical fall (1 pt) Confusion or Disorientation No (0 pts) Intoxicated or Sedated No (0 pts) Impaired Gait No (0 pts) Mobility Assist Device Used No (0 pt) Altered Elimination No (0 pt) Score/Fall Risk Level 0 - 2 = Low Risk Oriented to surroundings, Maintained a safe environment, Educated pt \T\ family on fall prevention, incl call for assistance when getting out of bed. Abuse screen: Denies threats or abuse. Denies injuries from another. Nutritional screening: No deficits noted. Tuberculosis screening: No symptoms or risk factors identified. Assessment: 11:09 General: Appears in no apparent distress. comfortable, well groomed, well developed, kc6 Behavior is calm, cooperative, appropriate for age. Pain: Complains of pain in left arm Pain does not radiate. Pain currently is 10 out of 10 on a pain scale. Quality of pain is described as sharp, Pain began suddenly, Is continuous, Alleviated by medications, rest, Aggravated by increased activity, repositioning, Noted to be grimacing, guarding, resistant to movement. Neuro: Level of Consciousness is awake, alert, obeys commands, Oriented to person, place, time, situation, Appropriate for age. Cardiovascular: No deficits noted. Respiratory: Airway is patent Trachea midline Respiratory effort is even, unlabored, Respiratory pattern is regular, symmetrical. GI: No signs and/or symptoms were reported involving the gastrointestinal system. : No signs and/or symptoms were reported regarding the genitourinary system. EENT: No signs and/or symptoms were reported regarding the EENT system. Derm: No signs and/or symptoms reported regarding the dermatologic system. Skin is intact, is healthy with good turgor, Skin is pink, warm \T\ dry. Musculoskeletal: Capillary refill < 3 seconds, Range of motion: limited in left FA Bony deformity noted of left arm Swelling present in left arm. 11:40 Reassessment: Patient appears in no apparent distress at this time. Patient and/or kj2 family updated on plan of care and expected duration. Pain level reassessed. Patient is alert, oriented x 3, equal unlabored respirations, skin warm/dry/pink. Vital Signs: 11:06 BP 150 / 88; Pulse 77; Resp 16 S; Temp 97.6(TE); Pulse Ox 94% on 2 lpm NC; Weight 82.55 kc6 kg (R); Height 5 ft. 5 in. (R); Pain 10/10; 12:14 BP 144 / 86; Pulse 80; Resp 20; Temp 98; Pulse Ox 100% on R/A; kj2 11:06 Body Mass Index 30.29 (82.55 kg, 165.1 cm) kc6 11:06 Pain Scale: Adult kc6 ED Course: 11:06 Patient arrived in ED. kc6 11:08 Triage completed. kc6 11:08 Arm band placed on. kc6 11:08 Patient has correct armband on for positive identification. Bed in low position. Call kc6 light in reach. Side rails up X2. Pulse ox on. NIBP on. Door closed. Noise minimized. Lights dimmed. Pillow given. 11:08 Maintain EMS IV. Dressing intact. Good blood return noted. Site clean \T\ dry. Gauge \T\ marisabel 6 site: 18G RAC. Flushed with 10 mL NS. Oxygen administration via nasal cannula \T\ 2L/min. 11:10 Yared Valverde MD is Attending Physician. [facility] 11:11 Zaira Melgar RN is Primary Nurse. kc6 11:40 Report received from ALONZO Meneses. kj2 11:58 Shoulder Left 2+ Views In Process Unspecified. EDMS 12:07 Ayad Jorgensen MD is Referral Physician. [facility] 12:14 Provided Education on: fracture care. kj2 12:14 IV discontinued, intact, bleeding controlled, No redness/swelling at site. Pressure kj2 dressing applied. 12:14 No provider procedures requiring assistance completed. kj2 Administered Medications: 11:36 Drug: NS 0.9% IV 500 ml 500 ml IV at 1 bolus once; to be given as a bolus over 30 kc6 minutes Volume: 500 ml; Route: IV; Rate: 1 bolus; Site: right antecubital; 11:36 Drug: Ketorolac IVP 30 mg IVP once Route: IVP; Site: right antecubital; kc6 11:59 Follow up: Response: No adverse reaction kj2 11:36 Drug: Diazepam PO 5 mg PO once Route: PO; kc6 11:58 Follow up: Response: No adverse reaction kj2 Medication: 12:13 VIS not applicable for this client. kj2 Outcome: 12:07 [facility]charge ordered by [facility] 12:14 Discharged to home ambulatory, kj2 12:14 Condition: stable 12:14 Discharge instructions given to patient, family, Instructed on discharge instructions, follow up and referral plans. Demonstrated understanding of instructions, follow-up care, 13:03 Patient left the ED. kj2 Signatures: Dispatcher [employer] EDYared Starr MD MD cha Campbell, Kaitlyn RN RN kc6 Nakia Nunez RN RN kj2 Corrections: (The following items were deleted from the chart) 11:12 11:06 Chief complaint: EMS states: they were toned out for a fall. pt reports tripping kc6 and falling while going UP her stairs. reports hitting her head. denies LOC, no blood thinners. kc6
--- NOTE | 2024-06-16 12:07 | EDPHYS ---
Physician Documentation [facility] Name: Cee Guthrie Age: 68 yrs Sex: Female : 1955 Arrival Date: 06/16/2024 Time: 11:02 Bed 16 Private MD: ED Physician Yared Valverde HPI: 06/16 11:21 This 68 yrs old Female presents to ER via EMS with complaints of Fall Injury, josemanuel Arm Pain. 11:21 Details of fall: The patient fell from an upright position, while walking. Onset: The josemanuel symptoms/episode began/occurred just prior to arrival. Associated injuries: The patient sustained injury to the head, neck injury, anterior aspect of left shoulder and posterior aspect of left shoulder, contusion, decreased range of motion, obvious fracture, painful injury, swelling. Severity of symptoms: At their worst the symptoms were mild, in the emergency department the symptoms are unchanged. Historical: - Allergies: 11:08 No Known Allergies; kc6 - PMHx: 11:08 Hypertension; Hypercholesterolemia; kc6 - PSHx: 11:08 None; kc6 - Immunization history:: Client reports receiving the 2nd dose of the Covid vaccine, Flu vaccine is not up to date. - Infectious Disease History:: Denies. - Social history:: Smoking status: Patient reports the use of cigarette tobacco products, smokes one pack cigarettes per day. ROS: 11:27 Constitutional: Negative for fever, chills, and weight loss, Eyes: Negative for injury, josemanuel pain, redness, and discharge, ENT: Negative for injury, pain, and discharge, Neck: Negative for injury, pain, and swelling, Cardiovascular: Negative for chest pain, palpitations, and edema, Respiratory: Negative for shortness of breath, cough, wheezing, and pleuritic chest pain, Abdomen/GI: Negative for abdominal pain, nausea, vomiting, diarrhea, and constipation, Back: Negative for injury and pain, : Negative for injury, bleeding, discharge, and swelling, Skin: Negative for injury, rash, and discoloration, Neuro: Negative for headache, weakness, numbness, tingling, and seizure, Psych: Negative for depression, anxiety, suicide ideation, homicidal ideation, and hallucinations, Allergy/Immunology: Negative for hives, rash, and allergies, Endocrine: Negative for neck swelling, polydipsia, polyuria, polyphagia, and marked weight changes, Hematologic/Lymphatic: Negative for swollen nodes, abnormal bleeding, and unusual bruising, 11:27 MS/extremity: Positive for injury or acute deformity, decreased range of motion, pain, swelling, tenderness, of the anterior aspect of left shoulder, left bicep, posterior aspect of left shoulder and left tricep, Exam: 11:27 Constitutional: This is a well developed, well nourished patient who is awake, alert, josemanuel and in no acute distress. Head/Face: Normocephalic, atraumatic. Eyes: Pupils equal round and reactive to light, extra-ocular motions intact. Lids and lashes normal. Conjunctiva and sclera are non-icteric and not injected. Cornea within normal limits. Periorbital areas with no swelling, redness, or edema. ENT: Nares patent. No nasal discharge, no septal abnormalities noted. Tympanic membranes are normal and external auditory canals are clear. Oropharynx with no redness, swelling, or masses, exudates, or evidence of obstruction, uvula midline. Mucous membranes moist. Neck: Trachea midline, no thyromegaly or masses palpated, and no cervical lymphadenopathy. Supple, full range of motion without nuchal rigidity, or vertebral point tenderness. No Meningismus. Chest/axilla: Normal chest wall appearance and motion. Nontender with no deformity. No lesions are appreciated. Cardiovascular: Regular rate and rhythm with a normal S1 and S2. No gallops, murmurs, or rubs. Normal PMI, no JVD. No pulse deficits. Respiratory: Lungs have equal breath sounds bilaterally, clear to auscultation and percussion. No rales, rhonchi or wheezes noted. No increased work of breathing, no retractions or nasal flaring. Abdomen/GI: Soft, non-tender, with normal bowel sounds. No distension or tympany. No guarding or rebound. No evidence of tenderness throughout. Back: No spinal tenderness. No costovertebral tenderness. Full range of motion. Skin: Warm, dry with normal turgor. Normal color with no rashes, no lesions, and no evidence of cellulitis. Neuro: Awake and alert, GCS 15, oriented to person, place, time, and situation. Cranial nerves II-XII grossly intact. Motor strength 5/5 in all extremities. Sensory grossly intact. Cerebellar exam normal. Normal gait. Psych: Awake, alert, with orientation to person, place and time. Behavior, mood, and affect are within normal limits. 11:27 Musculoskeletal/extremity: Extremities: grossly normal except: noted in the anterior aspect of left shoulder, left bicep, posterior aspect of left shoulder and left tricep: decreased ROM, pain, ROM: intact in all extremities, full active range of motion, Circulation is intact in all extremities. Sensation intact. Compartment Syndrome exam of affected extremity: is normal. Weight bearing: able to fully bear weight, DVT Exam: negative Homans' sign noted on exam, no appreciated bluish discoloration, no erythema, no increased warmth, pain, swelling, tenderness, Vital Signs: 11:06 BP 150 / 88; Pulse 77; Resp 16 S; Temp 97.6(TE); Pulse Ox 94% on 2 lpm NC; Weight 82.55 kc6 kg (R); Height 5 ft. 5 in. (R); Pain 10/10; 12:14 BP 144 / 86; Pulse 80; Resp 20; Temp 98; Pulse Ox 100% on R/A; kj2 11:06 Body Mass Index 30.29 (82.55 kg, 165.1 cm) kc6 11:06 Pain Scale: Adult kc6 MDM: 11:11 Medical Screening Exam initiated josemanuel 11:29 Differential diagnosis: closed head injury, contusion, fracture, laceration, multiple josemanuel trauma, sprain, strain. Data reviewed: vital signs, nurses notes, lab test result(s), radiologic studies, plain films. Consideration of Admission/Observation Escalation of care including admission/observation considered. I considered the following discharge prescriptions or medication management in the emergency department Medications were administered in the Emergency Department. See MAR. Independent interpretation of the following test(s) in the Emergency Department X-Ray: My interpretation is LEFT SHOULDER. Test considered but Not performed: CT: NO CY HEAD AND C SPINE NEEDED. 06/16 11:19 Order name: CBC with Diff; Complete Time: 12:06 [facility] 06/16 11:19 Order name: BMP; Complete Time: 12:06 [facility] 06/16 11:58 Order name: Shoulder Left 2+ Views EDMS 06/16 11:19 Order name: Ice pack; Complete Time: 11:36 [facility] Administered Medications: 11:36 Drug: NS 0.9% IV 500 ml 500 ml IV at 1 bolus once; to be given as a bolus over 30 kc6 minutes Volume: 500 ml; Route: IV; Rate: 1 bolus; Site: right antecubital; 11:36 Drug: Ketorolac IVP 30 mg IVP once Route: IVP; Site: right antecubital; kc6 11:59 Follow up: Response: No adverse reaction kj2 11:36 Drug: Diazepam PO 5 mg PO once Route: PO; kc6 11:58 Follow up: Response: No adverse reaction kj2 Disposition Summary: 06/16/24 12:07 Discharge Ordered Notes: Location: Home josemanuel Problem: new josemanuel Symptoms: have improved josemanuel Condition: Stable josemanuel Diagnosis - Fall on same level, unspecified josemanuel - Fracture of upper end of humerus josemanuel - 2-part displaced fracture of surgical neck of left humerus josemanuel Followup: josemanuel - With: Private Physician - When: 2 - 3 days - Reason: Recheck today's complaints, Continuance of care, Re-evaluation by your physician Followup: josemanuel - With: Ayad Jorgensen MD - When: 2 - 3 days - Reason: Recheck today's complaints, Re-evaluation by your physician Discharge Instructions: - Discharge Summary Sheet josemanuel - Humerus Fracture Treated With Immobilization josemanuel - Shoulder Pain josemanuel - Humerus Fracture Treated With Immobilization, Vqor-de-Bolf josemanuel - Shoulder Pain, [id number] josemanuel Forms: - Medication Reconciliation Form josemanuel - Antibiotic Education josemanuel - Prescription Opioid Use josemanuel - Patient Portal Instructions [facility] - Leadership Thank You Letter [facility] Prescriptions: - acetaminophen-codeine 300-30 mg Oral tablet - take 2 tablet ORAL route every 6 hours as needed for pain; 20 tablet; Refills: josemanuel 0, Product Selection Permitted - diclofenac sodium 50 mg Oral tablet, delayed release (enteric coated) - take 1 tablet ORAL route every 12 hours as needed for pain; 20 tablet; Refills: josemanuel 0, Product Selection Permitted - methocarbamol 750 mg Oral tablet - take 1 tablet ORAL route every 6 hours; 28 tablet; Refills: 0, Product josemanuel Selection Permitted Signatures: Dispatcher [employer] EDYared Starr MD MD cha Campbell, Kaitlyn, RN RN kc6 Nakia Nunez RN kj2 Corrections: (The following items were deleted from the chart) 11:58 11:19 Shoulder Right 2 View+[email or web address] ordered. EDMS EDMS
--- NOTE | 2024-06-16 12:37 | RAD REPORT ---
EXAMINATION: XR LEFT SHOULDER CLINICAL INDICATION: Female, 68 years old. PAIN RIGHT TECHNIQUE: Multiple views of the left shoulder were obtained. COMPARISON: No prior exam. FINDINGS: Multipart proximal left humerus fracture is seen. Mild angulation of the fracture fragments . A dislocation is not seen
[2024-06-17 02:56] VITALS: BP 144/86; TEMP 98; O2SAT 100
== END 2024-06-16 13:03 | disposition home or self-care (01) ==
LOC: ER 11:02
DX: S42.222A 2-part displaced fracture of surgical neck of left humerus, initial encounter for closed fracture (principal); S42.202A Unspecified fracture of upper end of left humerus, initial encounter for closed fracture; W18.30XA Fall on same level, unspecified, initial encounter; F17.210 Nicotine dependence, cigarettes, uncomplicated
CPT/HCPCS: 85025; 80048; 36415; 73030; 96374; 99285; J7040